=== PATIENT | female | born 1965 | race Caucasian/White ===

== ENCOUNTER 2016-09-12 07:41 | Day surgery (SDC) | payer OTHER ==
[~2016-09-12 07:41] MED LIST: PROPOFOL INJ 200 MG/20 ML VIAL IV ONE
[2016-09-12 09:40] VITALS: BP 118/72
--- NOTE | 2016-09-12 11:44 | Operative Report ---
Operative Report DATE OF SURGERY: 09/12/16 Operative Report: The risks, benefits and alternatives of the procedure including risks of bleeding, perforation requiring surgery are explained to the patient detail and informed consent is obtained. Patient is brought back to the endoscopy suite and placed in the left, lateral decubital position. A rectal examination was done which did not reveal any masses, tears or fissures. An Olympus videoscope was inserted into the patient's rectum. The scope was then gradually advanced all the way to the cecum. Cecum was identified by the usual anatomical landmarks including the ileocecal valve as well as the appendiceal office. Photodocumentation was obtained. The scope was then sequentially pulled back via the rest segments of the colon including the ascending colon, hepatic flexure, transverse colon, splenic flexure, descending colon and finally into the rectosigmoid portions of the colon. Retroflexion maneuvers performed. PREOPERATIVE DIAGNOSIS: Anemia, heme positive stool POSTOPERATIVE DIAGNOSIS: Mild right-sided mucosal inflammation in the colon status post biopsy. Internal hemorrhoids OPERATION: Colonoscopy with biopsy SURGEON: CLIFF MALCOLM ANESTHESIA: LMAC TISSUE REMOVED OR ALTERED: Specimen obtained rule out lymphocytic, microcytic, collagenous colitis COMPLICATIONS: None. ESTIMATED BLOOD LOSS: none INTRAOPERATIVE FINDINGS: As described above. PROCEDURE: Patient tolerated procedure well. No immediate postprocedure complications are noted. Patient discharged in good condition. Discharge date 09/12/2016. Discharge diet: Regular. Discharge activity: Regular. 2-3 week follow-up to discuss findings. Patient is instructed to call the office or proceed to the emergency room should there be any further problems or questions. We'll await on biopsies.
== END 2016-09-12 09:35 | disposition home or self-care (01) ==
LOC: END 07:41
PROVIDERS: ATTEND Internal Medicine Gastroenterology
PROC: 0DBF8ZX Excision of Right Large Intestine, Via Natural or Artificial Opening Endoscopic, Diagnostic (ICD-10-PCS; principal; 2016-09-12 09:00)
DX: K52.9 Noninfective gastroenteritis and colitis, unspecified (principal); D64.9 Anemia, unspecified; I10 Essential (primary) hypertension; Z86.73 Personal history of transient ischemic attack (TIA), and cerebral infarction without residual deficits; Z87.891 Personal history of nicotine dependence; Z88.6 Allergy status to analgesic agent; Z88.5 Allergy status to narcotic agent
CPT/HCPCS: 45380; 88305 ×2; J2704; 810

== ENCOUNTER 2016-09-20 18:39 | Emergency (ER) | payer OTHER ==
--- NOTE | 2016-09-20 19:32 | ER Document Report ---
HPI - HPI Patient complains to provider of: left foot injury Onset: Other Onset/Duration: Sudden Quality of pain: Throbbing Severity: Moderate Pain Level: 4 Context: Patient states she tripped injuring left toes and left foot on Monday. Associated Symptoms: None Exacerbated by: Movement, Walking Relieved by: Denies Similar symptoms previously: Yes Recently seen / treated by doctor: No - ROS ROS below otherwise negative: Yes Systems Reviewed and Negative: Yes All other systems reviewed and negative - CONSTITUTIONAL Constitutional: DENIES: Fever - EENT EENT: DENIES: Congestion - NEURO Neurology: DENIES: Headache - CARDIOVASCULAR Cardiovascular: DENIES: Chest pain - RESPIRATORY Respiratory: DENIES: Trouble Breathing - GASTROINTESTINAL Gastrointestinal: DENIES: Abdominal Pain - URINARY Urinary: DENIES: Dysuria - MUSCULOSKELETAL Musculoskeletal: REPORTS: Extremity pain, Swelling - Left toes and foot - DERM Skin Color: Ecchymosis - left Toes and foot Past Medical History - General Information source: Patient - Social History Smoking Status: Former Smoker Frequency of alcohol use: None Drug Abuse: None Lives with: Family Family History: Reviewed & Not Pertinent Patient has suicidal ideation: No Patient has homicidal ideation: No - Past Medical History Cardiac Medical History: Reports: Hx Hypercholesterolemia, Hx Hypertension Musculoskeltal Medical History: Denies Hx Arthritis Psychiatric Medical History: Reports: Hx Depression Past Surgical History: Reports: Hx Orthopedic Surgery - left hand right foot, Hx Tonsillectomy - 2011, Hx Tubal Ligation - Immunizations Hx Diphtheria, Pertussis, Tetanus Vaccination: Yes Vertical Provider Document - CONSTITUTIONAL Agree With Documented VS: Yes Exam Limitations: No Limitations General Appearance: WD/WN, No Apparent Distress - INFECTION CONTROL TRAVEL OUTSIDE OF THE [place] IN LAST 30 DAYS: No - HEENT HEENT: Atraumatic, Normocephalic - RESPIRATORY Respiratory: Breath Sounds Normal, No Respiratory Distress O2 Sat by Pulse Oximetry: 100 - CARDIOVASCULAR Cardiovascular: Regular Rate, Regular Rhythm - MUSCULOSKELETAL/EXTREMETIES Musculoskeletal/Extremeties: Edema - Left foot and toes. Neurovascular and sensation intact, Eccymosis - NEURO Level of Consciousness: Awake, Alert, Appropriate - DERM Integumentary: Warm, Dry Course - Re-evaluation Re-evalutation: 09/20/16 20:19 X-ray results reviewed with patient. Showed fracture of the left fifth toe, and sesamoid fracture of the first metatarsal. Patient nontender over first metatarsal, but posterior splint applied and patient instructed to follow with orthopedic for further evaluation. 09/20/16 20:39 - Vital Signs Vital signs: Temp Pulse Resp BP Pulse Ox 97.8 F 95 18 139/82 H 100 09/20/16 19:03 09/20/16 19:03 09/20/16 19:03 09/20/16 19:03 09/20/16 19:03 Procedures - Immobilization Left Foot Time completed: 20:39 Pre-Proc Neuro Vasc Exam: Normal Immobilizer type: Short Leg Posterior Performed by: PCT Post-Proc Neuro Vasc Exam: Normal Alignment checked and good: Yes Discharge - Discharge Clinical Impression: Contusion of left foot including toes Qualifiers: Encounter type: initial encounter Qualified Code(s): S90.32XA - Contusion of left foot, initial encounter Fracture of fifth toe, left, closed Qualifiers: Encounter type: initial encounter Qualified Code(s): S92.502A - Displaced unspecified fracture of left lesser toe(s), initial encounter for closed fracture Condition: Good Disposition: HOME, SELF-CARE Additional Instructions: Ice and elevate foot Motrin 3 times a day for pain, Vicodin as needed Follow-up with orthopedic for further evaluation of toe fracture, and first metatarsal fracture reported on x-ray. Return as needed Prescriptions: Hydrocodone/Acetaminophen [[place] 5-325 mg Tablet] 1 tab PO PRN PRN #10 tablet PRN Reason: Forms: Restricted Release Referrals: YOVANI DIAZ MD [ACTIVE STAFF] - Follow up as needed
[2016-09-20] MEDS ORDERED: HYDROCODONE/ACETAMINOPHEN 5-325 MG 6 TAB/DSPK PO PRN (20:24)
[2016-09-20 21:11] VITALS: BP 131/77
== END 2016-09-20 21:07 | disposition home or self-care (01) ==
LOC: ER 18:39
PROC: 2W3TX1Z Immobilization of Left Foot using Splint (ICD-10-PCS; principal; 2016-09-20)
DX: S90.32XA Contusion of left foot, initial encounter (principal); S92.502A Displaced unspecified fracture of left lesser toe(s), initial encounter for closed fracture; W01.0XXA Fall on same level from slipping, tripping and stumbling without subsequent striking against object, initial encounter; E78.00 Pure hypercholesterolemia, unspecified; I10 Essential (primary) hypertension; Z98.51 Tubal ligation status
CPT/HCPCS: 99283

== ENCOUNTER 2016-10-05 14:56 | Emergency (ER) | payer OTHER ==
--- NOTE | 2016-10-05 15:46 | ER Document Report ---
ED Extremity Problem, Lower - General Chief Complaint: Foot Injury Stated Complaint: LEFT FOOT PAIN Time Seen by Provider: 10/05/16 15:31 Mode of Arrival: Ambulatory Information source: Patient Notes: 50-year-old female presents to ED for pain in her left foot. He states he cannot follow-up with orthopedics as she does not have the money. TRAVEL OUTSIDE OF THE [place] IN LAST 30 DAYS: No - HPI Patient complains to provider of: Injury - 09/18/2016, Pain Location: 5th Toe Occurred: Other - 09/18/2016 Where: Outdoors Onset/Duration: Better Quality of pain: Achy Severity: Mild Pain Level: 1 Context: Other - Accidentally kicked a chair Recent injury: Yes Associated symptoms: Painful ambulation Exacerbated by: Walking Relieved by: Elevation, Ice, Rest - Related Data Allergies/Adverse Reactions: morphine Adverse Reaction (Severe, Verified 10/05/16 14:58) SEVERE N/V oxycodone [From Percocet] Adverse Reaction (Severe, Verified 10/05/16 14:58) SEVERE N/V Past Medical History - General Information source: Patient - Social History Smoking Status: Former Smoker Cigarette use (# per day): No Chew tobacco use (# tins/day): No Smoking Education Provided: No Frequency of alcohol use: Rare Drug Abuse: None Occupation: [employer] Lives with: Family Family History: Reviewed & Not Pertinent Patient has suicidal ideation: No Patient has homicidal ideation: No - Past Medical History Cardiac Medical History: Reports: Hx Hypercholesterolemia, Hx Hypertension Pulmonary Medical History: Reports: None EENT Medical History: Reports: None Neurological Medical History: Reports: None Endocrine Medical History: Reports: None Renal/ Medical History: Reports: None Malignancy Medical History: Reports: None GI Medical History: Reports: None Musculoskeltal Medical History: Reports None Skin Medical History: Reports None Psychiatric Medical History: Reports: Hx Depression Traumatic Medical History: Reports: None Infectious Medical History: Reports: None Surgical Hx: Negative Past Surgical History: Reports: Hx Orthopedic Surgery - left hand right foot, Hx Tonsillectomy - 2011, Hx Tubal Ligation - Immunizations Hx Diphtheria, Pertussis, Tetanus Vaccination: Yes Review of Systems - Review of Systems Constitutional: No symptoms reported EENT: No symptoms reported Cardiovascular: No symptoms reported Respiratory: No symptoms reported Gastrointestinal: No symptoms reported Genitourinary: No symptoms reported Female Genitourinary: No symptoms reported Musculoskeletal: Other - Foot pain Skin: No symptoms reported Hematologic/Lymphatic: No symptoms reported Neurological/Psychological: No symptoms reported -: Yes All other systems reviewed and negative Physical Exam - Vital signs Vitals: Temp Pulse Resp BP Pulse Ox 98.0 F 84 18 135/82 H 97 10/05/16 14:59 10/05/16 14:59 10/05/16 14:59 10/05/16 14:59 10/05/16 14:59 Interpretation: Normal - General General appearance: Appears well, Alert - HEENT Head: Normocephalic, Atraumatic Eyes: Normal Pupils: PERRL - Respiratory Respiratory status: No respiratory distress Chest status: Nontender Breath sounds: Normal Chest palpation: Normal - Cardiovascular Rhythm: Regular Heart sounds: Normal auscultation Murmur: No - Abdominal Inspection: Normal Distension: No distension Bowel sounds: Normal Tenderness: Nontender Organomegaly: No organomegaly - Back Back: Normal, Nontender - Extremities General upper extremity: Normal inspection, Nontender, Normal color, Normal ROM , Normal temperature General lower extremity: Normal inspection, Normal color, Normal ROM, Normal temperature, Normal weight bearing. No: Jie's sign Foot: Tender - Neurological Neuro grossly intact: Yes Cognition: Normal Orientation: AAOx4 Lefor Coma Scale Eye Opening: Spontaneous Lefor Coma Scale Verbal: Oriented Janett Coma Scale Motor: Obeys Commands Janett Coma Scale Total: 15 Speech: Normal Motor strength normal: LUE, RUE, LLE, RLE Sensory: Normal - Psychological Associated symptoms: Normal affect, Normal mood - Skin Skin Temperature: Warm Skin Moisture: Dry Skin Color: Normal Course - Re-evaluation Re-evalutation: 10/05/16 17:04 Discussed x-ray with patient and written report given to patient to follow-up with her primary doctor. Patient given a note that she can return to work. Patient states that she is able to ambulate with minimal pain. - Vital Signs Vital signs: Temp Pulse Resp BP Pulse Ox 98.0 F 84 18 135/82 H 97 10/05/16 14:59 10/05/16 14:59 10/05/16 14:59 10/05/16 14:59 10/05/16 14:59 - Diagnostic Test Radiology reviewed: Image reviewed, Reports reviewed Discharge - Discharge Clinical Impression: Fracture of toe of left foot Qualifiers: Encounter type: subsequent encounter Toe: lesser toe Fracture type: closed Phalanx: proximal Fracture alignment: nondisplaced Fracture healing: with routine healing Qualified Code(s): S92.515D - Nondisplaced fracture of proximal phalanx of left lesser toe(s), subsequent encounter for fracture with routine healing Condition: Stable Disposition: HOME, SELF-CARE Instructions: Family Physicians / Practices Additional Instructions: Fractured Toe You have fractured your toe. Although this fracture doesn't need a cast or splint, emergency evaluation was needed to assess the straightness of the bones and joints. Reduction ("setting") is necessary for toe fractures which are crooked or twisted. A toe fracture will heal in about three weeks. Usually, the fractured toe is taped to the next toe. The second toe acts as a moving splint to protect the broken one. Ice and elevation help during the first 48 hours. You may need crutches at first if walking is painful. When you begin walking, be careful NOT to do things that hurt. If weight bearing is not comfortable within a few days, you may require a special shoe, walking boot, or cast. Call the doctor or return at once if severe swelling, severe pain, or numbness develop in the toe, or if you suspect you may have re-injured it. ICE & ELEVATION: Apply ice packs frequently against the painful area. Many different schedules are recommended, such as "20 minutes on, 20 minutes off" or "one hour ice, two hours rest." If you need to work, you may need to go longer between ice treatments. You should plan to have the area ice packed AT LEAST one- fourth of the time. The ice should be applied over the wrap, tape, or splint, or over a layer of cloth -- not directly against the skin. Some ice bags have a built-in cloth and can be put directly on the skin. Your injured part should be elevated as much as possible over the next 48 hours. Try to keep the injury above the level of the heart. Avoid use of the injured area. Elevation and rest will decrease the swelling. USE OF [id number] IBUPROFEN: Ibuprofen (Advil, Nuprin, Medipren, Motrin IB) is a medication for fever and pain control. In addition, it has anti- inflammatory effects which may be beneficial, especially in the treatment of injuries. It's best to take ibuprofen with food. Persons with ulcer disease or allergy to aspirin should notify their physician of this before taking ibuprofen. Ibuprofen can be given every four to six hours, for a total of four doses daily. Age Pain or fever dose Antiinflammatory dose 6-8 yr 200 mg (1 tab) 200 mg (1 tab) 9-11 yr 200 mg (1 tab) 200-400 mg (1-2 tab) 11-14 yr 200-400 mg (1-2 tab) 400 mg (2 tab) 15-adult 400 mg (2 tab) 600 mg (3 tab) FOLLOW-UP CARE: If you have been referred to a physician for follow-up care, call the physician s office for an appointment as you were instructed or within the next two days. If you experience worsening or a significant change in your symptoms, notify the physician immediately or return to the Emergency Department at any time for re-evaluation. Forms: Return to Work, Elevated Blood Pressure
--- NOTE | 2016-10-05 16:16 | RADIOLOGY REPORT (SQ) ---
EXAM DESCRIPTION: FOOT LEFT COMPLETE COMPLETED DATE/TIME: 10/05/2016 3:51 pm REASON FOR STUDY: pain hx of fracture COMPARISON: None. NUMBER OF VIEWS: Three views. TECHNIQUE: AP, lateral and oblique radiographic images acquired of the left foot. LIMITATIONS: None. FINDINGS: MINERALIZATION: Normal. BONES: Oblique fracture in the proximal phalanx of the left 5th digit, no significant displacement. No other fracture or dislocation. No worrisome bone lesions. JOINTS: No effusions. SOFT TISSUES: Mild soft tissue swelling. No foreign body. OTHER: No other significant finding. IMPRESSION: Oblique fracture in the proximal phalanx of the left 5th digit, no significant displacem ent. TECHNICAL DOCUMENTATION: JOB ID: [id number] [employer] All Rights Reserved
[2016-10-05 17:07] VITALS: BP 125/79
== END 2016-10-05 17:07 | disposition home or self-care (01) ==
LOC: ER 14:56
DX: S92.515D Nondisplaced fracture of proximal phalanx of left lesser toe(s), subsequent encounter for fracture with routine healing (principal); M79.672 Pain in left foot; Z87.891 Personal history of nicotine dependence; X58.XXXD Exposure to other specified factors, subsequent encounter
CPT/HCPCS: 99283

== ENCOUNTER 2016-11-09 09:24 | Day surgery (SDC) | payer OTHER ==
[~2016-11-09 09:24] MED LIST changes: +DIPHENHYDRAMINE HCL 50 MG/ML VIAL ONE; +EPINEPHRINE INJ 1 MG/10 ML DISP.SYRIN ONE; +FLUMAZENIL INJ 0.5 MG/5 ML VIAL IV ONE; +GLUCAGON,HUMAN RECOMB 1 MG INJ ONE; +MIDAZOLAM 2 MG/2 ML INJ ONE; +NALOXONE HCL INJ/PF 0.4 MG/1 ML SDV ONE; +ONDANSETRON HCL INJ/PF 4 MG/2 ML SDV ONE; -PROPOFOL INJ 200 MG/20 ML VIAL IV ONE
[2016-11-09] MEDS: MIDAZOLAM 2 MG/2 ML INJ ONE ×3 (10:05→10:13)
[2016-11-09] MEDS: FENTANYL CITRATE INJ/PF 100 MCG/2 ML AMPUL ONE ×2 (10:07→10:10)
--- NOTE | 2016-11-09 10:24 | Operative Report ---
Operative Report DATE OF SURGERY: 11/09/16 Operative Report: The risks benefits and alternatives of the procedure explained to the patient in detail and informed consent is obtained. A GIF Olympus video scope was inserted into the patient's mouth and hypopharynx, the esophagus is identified intubated and insufflated ,the scope was then advanced through the esophagus stomach and duodenum, retroflexion maneuver is done, the esophagus stomach and first and second portions of the duodenum examined PREOPERATIVE DIAGNOSIS: Gastroesophageal reflux disease POSTOPERATIVE DIAGNOSIS: Emmanuel's esophagus status post ablation. Hiatal hernia. Gastritis status post biopsy rule out Helicobacter pylori OPERATION: EGD with ablation. EGD with biopsy SURGEON: CLIFF MALCOLM ANESTHESIA: Moderate Sedation - 6 mg of Versed, 100 mcg of fentanyl. Conscious sedation monitoring time 30 minutes. TISSUE REMOVED OR ALTERED: Gastric mucosal specimen obtained to rule out Helicobacter pylori. COMPLICATIONS: None. ESTIMATED BLOOD LOSS: None. INTRAOPERATIVE FINDINGS: As described above. PROCEDURE: Patient tolerated the procedure well. No immediate postprocedure complications are noted. Patient discharged in good condition. Discharge date 11/09/2016. Discharge diet: Regular. Discharge activity: Regular. 2-3 week follow-up to discuss findings. Patient is instructed to call the office or proceed to the emergency room should there be any further problems or questions.
[2016-11-09 12:16] VITALS: BP 95/56
== END 2016-11-09 11:35 | disposition home or self-care (01) ==
LOC: END 09:24
PROVIDERS: ATTEND Internal Medicine Gastroenterology
PROC: 0D558ZZ Destruction of Esophagus, Via Natural or Artificial Opening Endoscopic (ICD-10-PCS; principal; 2016-11-09 09:30)
PROC: 0DB68ZX Excision of Stomach, Via Natural or Artificial Opening Endoscopic, Diagnostic (ICD-10-PCS; 2016-11-09 09:30)
DX: K21.9 Gastro-esophageal reflux disease without esophagitis (principal); K22.70 Barrett's esophagus without dysplasia; K44.9 Diaphragmatic hernia without obstruction or gangrene; K29.70 Gastritis, unspecified, without bleeding
CPT/HCPCS: 43270; 43239; 88342 ×2; 88305 ×2; J2250; J3010; J0171; J1200; J1610; J2310; J2405; J3490

== ENCOUNTER 2017-02-06 11:49 | Emergency (ER) | payer OTHER ==
--- NOTE | 2017-02-06 12:41 | ER Document Report ---
ED GI/ - General Mode of Arrival: Ambulatory Information source: Patient TRAVEL OUTSIDE OF THE [place] IN LAST 30 DAYS: No - HPI Patient complains to provider of: Other - see narrative Associated symptoms: Other - see narrative Similar symptoms previously: Yes <TATE ROSA - Last Filed: 02/06/17 12:32> <CRUZITO DANIELLE - Last Filed: 02/06/17 15:54> - General Chief Complaint: Fever Stated Complaint: FEVER Time Seen by Provider: 02/06/17 12:21 Notes: Patient is a 51-year-old female who presents to the emergency department today with complaints of the sensation that her iron is low. Patient states she is able to sense when her iron drops. Patient states she has been tested in the past for blood in her stool which came back positive. 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 Patient states she had an appointment today with the [facility] so she called to see if she could get in earlier and they told her to come here. Patient states she vomited prior to arrival here. Patient complains of fevers, generalized body aches, chills, and associated nausea. Patient denies any chest pain, shortness of breath, diarrhea , abdominal pain, ear pain, nose congestion, or throat pain. (TATE ROSA) - Related Data Allergies/Adverse Reactions: morphine Adverse Reaction (Severe, Verified 02/06/17 11:53) SEVERE N/V oxycodone [From Percocet] Adverse Reaction (Severe, Verified 02/06/17 11:53) SEVERE N/V Past Medical History - General Information source: Patient, [facility] Records - Social History Smoking Status: Former Smoker Cigarette use (# per day): No Chew tobacco use (# tins/day): No Frequency of alcohol use: None Drug Abuse: None Lives with: Family Family History: Reviewed & Not Pertinent - Past Medical History Cardiac Medical History: Reports: Hx Hypercholesterolemia, Hx Hypertension Psychiatric Medical History: Reports: Hx Depression Past Surgical History: Reports: Hx Orthopedic Surgery - left hand right foot, Hx Tonsillectomy - 2012, Hx Tubal Ligation. Denies: Hx Hysterectomy - Immunizations Hx Diphtheria, Pertussis, Tetanus Vaccination: Yes <TATE ROSA - Last Filed: 02/06/17 12:32> Review of Systems - Review of Systems Constitutional: See HPI, Chills, Fever, Other - sensation that her iron is low EENT: denies: Ear pain, Nose congestion, Throat pain Cardiovascular: denies: Chest pain Respiratory: denies: Short of breath Gastrointestinal: See HPI, Nausea, Vomiting. denies: Abdominal pain, Diarrhea Genitourinary: No symptoms reported Female Genitourinary: No symptoms reported Musculoskeletal: See HPI, Joint pain - generalized body aches Skin: No symptoms reported Hematologic/Lymphatic: No symptoms reported Neurological/Psychological: No symptoms reported -: Yes All other systems reviewed and negative <TATE ROSA - Last Filed: 02/06/17 12:32> Physical Exam <TATE ROSA - Last Filed: 02/06/17 12:32> <CRUZITO DANIELLE - Last Filed: 02/06/17 15:54> - Vital signs Vitals: Temp Pulse Resp BP Pulse Ox 101.5 F H 116 H 24 H 158/89 H 100 02/06/17 11:53 02/06/17 11:53 02/06/17 11:53 02/06/17 11:53 02/06/17 11:53 - Notes Notes: PHYSICAL EXAM GENERAL: Alert, interacts well. No acute distress. HEAD: Normocephalic, atraumatic. EYES: Pupils equal, round, and reactive to light. Extraocular movements intact. ENT: Oral mucosa moist, tongue midline. NECK: Full range of motion. Supple. Trachea midline. LUNGS: Clear to auscultation bilaterally, no wheezes, rales, or rhonchi. No respiratory distress. HEART: Mildly tachycardic, regular rhythm, 2/6 systolic ejection murmur. No murmurs gallops or rubs. ABDOMEN: Obese, soft, non-tender. Non-distended. Bowel sounds present in all 4 quadrants. EXTREMITIES: Moves all 4 extremities spontaneously. No cyanosis. NEUROLOGICAL: Alert and oriented x3. Normal speech. PSYCH: Normal affect, normal mood. SKIN: Warm, dry, normal turgor. No rashes or lesions noted. (TATE ROSA) Course <TATE ROSA - Last Filed: 02/06/17 12:32> - Laboratory Result Diagrams: 02/06/17 12:57 02/06/17 12:57 <CRUZITO DANIELLE - Last Filed: 02/06/17 15:54> - Re-evaluation Re-evalutation: 02/06/17 14:30 CBC shows leukocytosis with white count of 13.9, CMP unremarkable, urinalysis unremarkable, rapid flu is negative. 02/06/17 14:30 At present patient's symptoms are very nonspecific, the fatigue and chills are explained by the fever however I do not have an exact etiology for her fever at this time. I do not see a source of infection at this time. Abdomen is benign. No other source of infection is seen. At this time patient will be discharged home with Zofran and instructions to drink plenty of fluid, return to the emergency department for any new or concerning symptoms. (CRUZITO DANIELLE) - Vital Signs Vital signs: Temp Pulse Resp BP Pulse Ox 101.5 F H 116 H 24 H 158/89 H 100 02/06/17 11:53 02/06/17 11:53 02/06/17 11:53 02/06/17 11:53 02/06/17 11:53 - Laboratory Laboratory results interpreted by me: 02/06/17 12:57 WBC 13.9 H MCH 26.0 L RDW 15.9 H Seg Neutrophils % 87.4 H Lymphocytes % 6.7 L Absolute Neutrophils 12.1 H Discharge <TATE ROSA - Last Filed: 02/06/17 12:32> <CRUZITO DANIELLE - Last Filed: 02/06/17 15:54> - Discharge Clinical Impression: Fever Qualifiers: Fever type: unspecified Qualified Code(s): R50.9 - Fever, unspecified Nausea and vomiting Qualifiers: Vomiting type: unspecified Vomiting Intractability: non-intractable Qualified Code(s): R11.2 - Nausea with vomiting, unspecified Hypertension Qualifiers: Hypertension type: essential hypertension Qualified Code(s): I10 - Essential ( primary) hypertension Condition: Stable Disposition: HOME, SELF-CARE Additional Instructions: Vomiting Vomiting (or nausea without vomiting) can be caused by many other different problems. It can mean that something's wrong with the stomach, such as ulcers or inflammation or the intestinal tract, such as appendicitis. But it can also be a symptom of a problem that has nothing to do with the stomach or intestines. Vomiting is common with severe headaches, earaches, tonsillitis, and kidney infections, etc. We see it with pneumonia or heart attacks. Drugs can cause nausea and vomiting. Many abdominal problems cause vomiting; for example, gallstones, kidney stones, pancreatitis, and intestinal obstruction ( blocked bowels). In most cases, curing the vomiting depends on fixing the problem that caused it. For temporary relief, we may use an anti-nausea medicine. For home use, we can prescribe suppositories, chewable pills, pills that dissolve in the mouth, or liquid anti-nausea drugs. If the vomiting seems to be caused by a problem in the stomach, acid-suppressing drugs may be prescribed as well. It's important to avoid dehydration. Sip small amounts of clear liquids ( soft drinks, tea, broth, etc) . Try to take fluids frequently even if you are vomiting to prevent dehydration. Take increasing amounts of fluid and when liquids are being consumed successfully, advance to small amounts of bland food (toast, soups, mashed potatoes, etc.) until you are able to resume a regular diet. Avoid aspirin, tobacco, and alcohol. If the vomiting worsens, if the problem that's making you vomit worsens, or if there's evidence of bleeding in the stomach (such as black, tarry stool, or bloody or black vomit), you should return immediately. Also, return if abdominal pain worsens or becomes localized to one area or you develop high fever. Call your doctor if you aren't improved in 24 hours. You do not have the flu, you are not dehydrated, your liver and kidneys are normal, you do not have a urine infection. Prescriptions: Ondansetron [Zofran Odt 4 mg Tablet] 1 - 2 tab PO Q4H PRN #15 tab.rapdis PRN Reason: For Nausea/Vomiting Forms: Elevated Blood Pressure Referrals: [facility] [Primary Care Provider] - Follow up as needed Ever Attestation: 02/06/17 15:54 I personally performed the services described in the documentation, reviewed and edited the documentation which was dictated to the scribe in my presence, and it accurately records my words and actions. (CRUZITO DANIELLE) Scribe Documentation - Scribe Written by Ever:: Ever Sotomayor, 02/06/2017 1242 acting as scribe for :: Chayo <TATE ROSA - Last Filed: 02/06/17 12:32>
[2017-02-06] MEDS ORDERED: NORMAL SALINE 1000 ML 1,000 ML IV ONE (12:43)
[2017-02-06] MEDS ORDERED: ONDANSETRON HCL INJ/PF 4 MG/2 ML SDV IV ONE (12:43)
[2017-02-06 13:11] LABS: ABSOLUTE BASOPHILS # (AUTO) 0.1 10^3/uL (0.0-0.2); ABSOLUTE EOSINOPHILS # (AUTO) 0.1 10^3/uL (0.0-0.6); ABSOLUTE LYMPHOCYTES (AUTO) 0.9 10^3/uL (0.5-4.7); ABSOLUTE MONOCYTES (AUTO) 0.7 10^3/uL (0.1-1.4); ABSOLUTE NEUT (AUTO) 12.1 10^3/uL (1.7-8.2); BASOPHILS % (AUTO) 0.4 % (0-2); EOSINOPHILS % (AUTO) 0.8 % (0-6); HEMATOCRIT 36.7 % (36.0-47.0); HGB HCT DIFFERENCE -0.7; LYMPHOCYTES % (AUTO) 6.7 % (13-45); MEAN CORPUSCULAR HGB CONC 32.6 g/dL (32.0-36.0); MEAN CORPUSCULAR VOLUME 80 fl (80-97); MONOCYTES % (AUTO) 4.7 % (3-13); RED BLOOD COUNT 4.61 10^6/uL (3.72-5.28); RED CELL DISTRIBUTION WIDTH 15.9 % (11.5-14.0); SEGMENTED NEUTROPHILS % (AUTO) 87.4 % (42-78); WHITE BLOOD COUNT 13.9 10^3/uL (4.0-10.5)
[2017-02-06 13:28] LABS: ALANINE AMINOTRANSFERASE 24 U/L (9-52); ALBUMIN 4.1 g/dL (3.5-5.0); ALKALINE PHOSPHATASE 80 U/L (38-126); ANION GAP 12 (5-19); ASPARTATE AMINO TRANSFERASE 22 U/L (14-36); BILIRUBIN,DIRECT 0.4 mg/dL (0.0-0.4); BILIRUBIN,TOTAL 0.5 mg/dL (0.2-1.3); BLOOD UREA NITROGEN 13 mg/dL (7-20); CALCIUM 9.6 mg/dL (8.4-10.2); CARBON DIOXIDE 28 mmol/L (22-30); CHLORIDE 102 mmol/L (98-107); CREATININE RESULT 0.87 mg/dL (0.52-1.25); GLUCOSE 101 mg/dL (75-110); POTASSIUM 4.6 mmol/L (3.6-5.0); SODIUM 142.1 mmol/L (137-145); TOTAL PROTEIN 7.2 g/dL (6.3-8.2)
[2017-02-06 14:01] LABS: APPEARANCE,URINE CLEAR; BILIRUBIN,URINE NEGATIVE (NEGATIVE); GLUCOSE, URINE NEGATIVE (NEGATIVE); KETONES,URINE NEGATIVE (NEGATIVE); LEUKOCYTE ESTERASE,URINE NEGATIVE (NEGATIVE); NITRITE,URINE NEGATIVE (NEGATIVE); PROTEIN,URINE NEGATIVE (NEGATIVE); URINE SPECIFIC GRAVITY 1.011; UROBILINOGEN,URINE NEGATIVE mg/dL (<2.0)
[2017-02-06] MEDS ORDERED: ONDANSETRON 4 MG TAB.RAPDIS PO ONE (14:35)
[2017-02-06 16:32] VITALS: BP 122/69
== END 2017-02-06 16:33 | disposition home or self-care (01) ==
LOC: ER 11:49
DX: R50.9 Fever, unspecified (principal); R11.2 Nausea with vomiting, unspecified; I10 Essential (primary) hypertension; E78.00 Pure hypercholesterolemia, unspecified; Z88.6 Allergy status to analgesic agent; Z98.51 Tubal ligation status; Z87.891 Personal history of nicotine dependence
CPT/HCPCS: 99283; 96374; 36415; 85025; 80053; 81001; 87804; S0119; J2405; J7030

== ENCOUNTER → 2017-04-14 | Outpatient (CLI) | payer OTHER ==
[2017-04-14 14:27] LABS: ABSOLUTE BASOPHILS # (AUTO) 0.1 10^3/uL (0.0-0.2); ABSOLUTE EOSINOPHILS # (AUTO) 0.3 10^3/uL (0.0-0.6); ABSOLUTE LYMPHOCYTES (AUTO) 2.4 10^3/uL (0.5-4.7); ABSOLUTE MONOCYTES (AUTO) 0.7 10^3/uL (0.1-1.4); ABSOLUTE NEUT (AUTO) 5.5 10^3/uL (1.7-8.2); BASOPHILS % (AUTO) 1.1 % (0-2); EOSINOPHILS % (AUTO) 2.8 % (0-6); HEMATOCRIT 38.4 % (36.0-47.0); HEMOGLOBIN 12.7 g/dL (12.0-15.5); HGB HCT DIFFERENCE -0.3; LYMPHOCYTES % (AUTO) 26.8 % (13-45); MEAN CORPUSCULAR HEMOGLOBIN 25.9 pg (27.0-33.4); MEAN CORPUSCULAR HGB CONC 33.1 g/dL (32.0-36.0); MEAN CORPUSCULAR VOLUME 78 fl (80-97); MONOCYTES % (AUTO) 7.3 % (3-13); RED CELL DISTRIBUTION WIDTH 15.9 % (11.5-14.0); WHITE BLOOD COUNT 8.9 10^3/uL (4.0-10.5)
== END ==
LOC: CCC 13:57
DX: D50.9 Iron deficiency anemia, unspecified (principal)
CPT/HCPCS: 36415; 83540; 85025

== ENCOUNTER 2017-06-19 10:49 | Day surgery (SDC) | payer OTHER ==
[~2017-06-19 10:49] MED LIST changes: -DIPHENHYDRAMINE HCL 50 MG/ML VIAL ONE; -EPINEPHRINE INJ 1 MG/10 ML DISP.SYRIN ONE; -FLUMAZENIL INJ 0.5 MG/5 ML VIAL IV ONE; -GLUCAGON,HUMAN RECOMB 1 MG INJ ONE; -MIDAZOLAM 2 MG/2 ML INJ ONE; -NALOXONE HCL INJ/PF 0.4 MG/1 ML SDV ONE; -ONDANSETRON HCL INJ/PF 4 MG/2 ML SDV ONE; +PROPOFOL INJ 200 MG/20 ML VIAL IV ONE
--- NOTE | 2017-06-19 12:03 | Operative Report ---
Operative Report DATE OF SURGERY: 06/19/17 Operative Report: The risks benefits and alternatives of the procedure explained to the patient in detail and informed consent is obtained.A GIF Olympus video scope was inserted into the patient's mouth and hypopharynx, the esophagus is identified intubated and insufflated, the scope was then advanced through the esophagus stomach and duodenum, retroflexion maneuver is done, the esophagus stomach and first and second portions of the duodenum examined PREOPERATIVE DIAGNOSIS: Emmanuel's esophagus POSTOPERATIVE DIAGNOSIS: Emmanuel's esophagus status post ablation OPERATION: EGD with ablation SURGEON: CLIFF MALCOLM ANESTHESIA: LMAC TISSUE REMOVED OR ALTERED: None. COMPLICATIONS: None. ESTIMATED BLOOD LOSS: None. INTRAOPERATIVE FINDINGS: As noted above. Hiatal hernia. Resolving gastritis PROCEDURE: Patient tolerated procedure well. No immediate postprocedure complications are noted. Patient discharged in good condition. Discharge date 06/19/2017. Discharge diet: Regular. Discharge activity: Regular. 2-3 week follow-up to discuss findings. Patient is instructed to call the office or proceed to the emergency room should there be any further problems or questions.
[2017-06-19 12:30] VITALS: BP 147/65
== END 2017-06-19 12:25 | disposition home or self-care (01) ==
LOC: END 10:49
PROVIDERS: ATTEND Internal Medicine Gastroenterology
PROC: 0D558ZZ Destruction of Esophagus, Via Natural or Artificial Opening Endoscopic (ICD-10-PCS; principal; 2017-06-19 14:30)
DX: K22.719 Barrett's esophagus with dysplasia, unspecified (principal); K21.9 Gastro-esophageal reflux disease without esophagitis; K44.9 Diaphragmatic hernia without obstruction or gangrene; K29.70 Gastritis, unspecified, without bleeding; I10 Essential (primary) hypertension; E66.9 Obesity, unspecified; Z86.73 Personal history of transient ischemic attack (TIA), and cerebral infarction without residual deficits; Z88.5 Allergy status to narcotic agent; Z87.891 Personal history of nicotine dependence; Z68.41 Body mass index [BMI] 40.0-44.9, adult
CPT/HCPCS: 43270; J2704; 731

== ENCOUNTER 2017-07-05 18:35 | Emergency (ER) | payer OTHER ==
--- NOTE | 2017-07-05 20:33 | ER Document Report ---
HPI - HPI Patient complains to provider of: ear pain Pain Level: 2 Context: 51 yo female c/o pressure in both ears for over 1 month. no fever. no headache + popping and itching in ears. Taking sudafed without relief. reports similar ear discomfort in past Associated Symptoms: None Exacerbated by: Denies Relieved by: Denies Similar symptoms previously: Yes Recently seen / treated by doctor: No - EENT EENT: REPORTS: Ear Pain - [id number]. DENIES: Sore Throat - NEURO Neurology: DENIES: Headache, Weakness, Vision blurred, Dizzinesss / Vertigo - CARDIOVASCULAR Cardiovascular: DENIES: Chest pain - RESPIRATORY Respiratory: DENIES: Trouble Breathing, Coughing - GASTROINTESTINAL Gastrointestinal: DENIES: Abdominal Pain, Black / Bloody Stools - URINARY Urinary: DENIES: Dysuria, Urgency, Frequency - MUSCULOSKELETAL Musculoskeletal: DENIES: Extremity pain Past Medical History - General Information source: Patient - Social History Smoking Status: Never Smoker Lives with: Family Family History: Reviewed & Not Pertinent Patient has suicidal ideation: No Patient has homicidal ideation: No - Past Medical History Cardiac Medical History: Reports: Hx Hypercholesterolemia, Hx Hypertension Denies: Hx Coronary Artery Disease, Hx Heart Attack Pulmonary Medical History: Denies: Hx Asthma, Hx Bronchitis, Hx COPD, Hx Pneumonia Neurological Medical History: Denies: Hx Cerebrovascular Accident, Hx Seizures Renal/ Medical History: Denies: Hx Peritoneal Dialysis Musculoskeltal Medical History: Denies Hx Arthritis Psychiatric Medical History: Reports: Hx Depression Past Surgical History: Reports: Hx Orthopedic Surgery - left hand right foot, Hx Tonsillectomy - 2011, Hx Tubal Ligation. Denies: Hx Hysterectomy - Immunizations Hx Diphtheria, Pertussis, Tetanus Vaccination: Yes Vertical Provider Document - CONSTITUTIONAL Agree With Documented VS: Yes Exam Limitations: Physical Impairment - INFECTION CONTROL TRAVEL OUTSIDE OF THE [place] IN LAST 30 DAYS: No - HEENT HEENT: Atraumatic, PERRLA Notes: + bilat effusions. no pre/post auricular tenderness. no mastoid tenderness - NECK Neck: Normal Inspection, Supple - RESPIRATORY Respiratory: Breath Sounds Normal, No Respiratory Distress O2 Sat by Pulse Oximetry: 97 - DERM Integumentary: Warm, Dry Course - Vital Signs Vital signs: Temp Pulse Resp BP Pulse Ox 98.8 F 73 20 136/86 H 97 07/05/17 19:09 07/05/17 19:09 07/05/17 19:09 07/05/17 19:09 07/05/17 19:09 Discharge - Discharge Clinical Impression: Acute serous otitis media, bilateral Qualifiers: Recurrence: not specified as recurrent Qualified Code(s): H65.03 - Acute serous otitis media, bilateral Condition: Stable Disposition: HOME, SELF-CARE Instructions: Serous Otitis Media ([facility]) Additional Instructions: Recommend over the counter antihistamine/decongestant to dry fluid in the inner ear - Kat Correiayrmarvin Hernández oral steroid as prescribed push fluids follow up with primary care if symptoms persist Prescriptions: Prednisone [Deltasone 10 mg Tablet] 10 mg PO ASDIR PRN #21 tablet PRN Reason:
[2017-07-05 20:49] VITALS: BP 128/88
== END 2017-07-05 20:47 | disposition home or self-care (01) ==
LOC: ER 18:35
DX: H65.03 Acute serous otitis media, bilateral (principal); I10 Essential (primary) hypertension
CPT/HCPCS: 99282

== ENCOUNTER 2017-07-17 18:57 | Emergency (ER) | payer OTHER ==
[2017-07-17 19:06] VITALS: BP 139/84
--- NOTE | 2017-07-17 20:01 | ER Document Report ---
ED ENT - General Chief Complaint: Ear Pain Stated Complaint: EAR PAIN, SORE THROAT Time Seen by Provider: 07/17/17 19:43 Mode of Arrival: Ambulatory Information source: Patient Notes: 51-year-old female presented ED for complaint of right ear pain today. She states that times her left ear hurts also. She also has runny nose congestion sore throat. States she was seen recently for the same thing was started on some steroids the symptoms all went away and have come back. TRAVEL OUTSIDE OF THE [place] IN LAST 30 DAYS: No - HPI Patient complains to provider of: Ear problem, Nose problem, Throat problem Onset: Other - Several days Onset/Duration: Gradual Quality of pain: Sharp Severity: Moderate Pain Level: 3 Context: Recent Illness Location of pain: Ears, Nose, Throat Associated symptoms: Ear pain, Runny nose, Sinus pain, Sinus drainage, Sore throat Similar symptoms previously: Yes Recently seen / treated by doctor: Yes - Related Data Allergies/Adverse Reactions: morphine Adverse Reaction (Severe, Verified 07/17/17 18:58) SEVERE N/V oxycodone [From Percocet] Adverse Reaction (Severe, Verified 07/17/17 18:58) SEVERE N/V Past Medical History - General Information source: Patient - Social History Smoking Status: Former Smoker Cigarette use (# per day): No Chew tobacco use (# tins/day): No Smoking Education Provided: No Frequency of alcohol use: None Drug Abuse: None Lives with: Family Family History: CAD, CVA, DM, Hyperlipidemia, Hypertension, Thyroid Disfunction. denies: COPD, Malignancy Patient has suicidal ideation: No Patient has homicidal ideation: No - Past Medical History Cardiac Medical History: Reports: Hx Hypercholesterolemia, Hx Hypertension Pulmonary Medical History: Reports: None EENT Medical History: Reports: None Neurological Medical History: Reports: Hx Cerebrovascular Accident - TIA Endocrine Medical History: Reports: None Renal/ Medical History: Reports: None Malignancy Medical History: Reports: None GI Medical History: Reports: None Musculoskeltal Medical History: Reports Hx Arthritis, Reports Hx Musculoskeletal Deformity - Carpal tunnel and ganglion cyst, Reports Hx Musculoskeletal Trauma - Torn tendon in the foot Skin Medical History: Reports None Psychiatric Medical History: Reports: Hx Depression Traumatic Medical History: Reports: None Infectious Medical History: Reports: None Past Surgical History: Reports: Hx Orthopedic Surgery - left hand right foot, Hx Tonsillectomy - 2011, Hx Tubal Ligation - Immunizations Hx Diphtheria, Pertussis, Tetanus Vaccination: Yes Review of Systems - Review of Systems Notes: Constitutional: [PRESENT: as per HPI. ABSENT: chills, fever(s), headache(s), weight gain, weight loss] Eyes: [ABSENT: visual disturbances] Ears: [ABSENT: hearing changes] complains of pain in right ear Nasopharyngeal: Runny nose sore throat congestion Cardiovascular: [ABSENT: chest pain, dyspnea on exertion, edema, orthropnea, palpitations] Respiratory: [ABSENT: cough, hemoptysis] Gastrointestinal: [ABSENT: abdominal pain, constipation, diarrhea, hematemesis, hematochezia, nausea, vomiting] Genitourinary: [ABSENT: dysuria, hematuria] Musculoskeletal: [ABSENT: joint swelling] Integumentary: [ABSENT: rash, wounds] Neurological: [ABSENT: abnormal gait, abnormal speech, confusion, dizziness, focal weakness, syncope] Psychiatric: [ABSENT: anxiety, depression, homicidal ideation, suicidal ideation ] Endocrine: [ABSENT: cold intolerance, heat intolerance, menstrual abnormalities , polydipsia, polyuria] Hematologic/Lymphatic: [ABSENT: easy bleeding, easy bruising, lymphadenopathy] Physical Exam - Vital signs Vitals: Temp Pulse Resp BP Pulse Ox 98.7 F 77 18 139/84 H 99 07/17/17 19:04 07/17/17 19:04 07/17/17 19:04 07/17/17 19:04 07/17/17 19:04 - Notes Notes: PHYSICAL EXAMINATION: GENERAL: Well-appearing, well-nourished and in no acute distress. HEAD: Atraumatic, normocephalic. EYES: Pupils equal round and reactive to light, extraocular movements intact, conjunctiva are normal. ENT: Erythematous swollen nasal turbinates, oropharynx erythematous with postnasal drip clear without exudates. Moist mucous membranes. Tympanic membranes pearly merida with no loss of bony landmarks NECK: Normal range of motion, supple without lymphadenopathy LUNGS: Breath sounds clear to auscultation bilaterally and equal. No wheezes rales or rhonchi. HEART: Regular rate and rhythm without murmurs ABDOMEN: Soft, nontender, nondistended abdomen. No guarding, no rebound. No masses appreciated. Female : deferred Musculoskeletal: Normal range of motion, no pitting or edema. No cyanosis. NEUROLOGICAL: Cranial nerves grossly intact. Normal speech, normal gait. Normal sensory, motor exams PSYCH: Normal mood, normal affect. SKIN: Warm, Dry, normal turgor, no rashes or lesions noted. Course - Re-evaluation Re-evalutation: 07/17/17 20:09 Assessment consistent with an upper respiratory infection with a viral sore throat. There is no signs or symptoms of any infection in either ear. Patient was encouraged to use Tylenol for her discomfort. She is also encouraged to use Flonase continue to use her Claritin for her upper respiratory symptoms. - Vital Signs Vital signs: Temp Pulse Resp BP Pulse Ox 98.7 F 77 18 139/84 H 99 07/17/17 19:04 07/17/17 19:04 07/17/17 19:04 07/17/17 19:04 07/17/17 19:04 Discharge - Discharge Clinical Impression: Viral sore throat, Otalgia of right ear URI (upper respiratory infection) Qualifiers: URI type: unspecified URI Qualified Code(s): J06.9 - Acute upper respiratory infection, unspecified HTN (hypertension) Qualifiers: Hypertension type: unspecified Qualified Code(s): I10 - Essential (primary) hypertension Condition: Stable Disposition: HOME, SELF-CARE Instructions: Family Physicians / Practices Additional Instructions: SORE THROAT: Sore throats may be caused by viruses, bacteria, or fungi. Most are due to a virus, and must get better on their own. Bacterial sore throats, particularly those due to "strep," need treatment with antibiotics. If an antibiotic is prescribed, be sure to take the medication for a full 10 days. Failure to take the antibiotic can result in complications such as rheumatic fever. Sometimes, an injection of antibiotics is given instead of pills or liquid. This single "shot" is equal in effectiveness to the oral medication. To relieve symptoms, take acetaminophen for pain. Sip clear liquids frequently, or eat popsicles or ice chips. Anesthetic sprays or lozenges may help. Make sure the air in the room is not too dry. Avoid using decongestants or antihistamines. Call the doctor if there is no improvement in two days, or if you have difficulty breathing, increasing throat pain, high fever, rash, or frequent vomiting. UPPER RESPIRATORY ILLNESS: You have a viral infection of the respiratory passages -- a "cold." This common infection causes nasal congestion, drainage, and often sore throat and cough. It is highly contagious. The disease usually lasts about 10 to 14 days. There is no "cure" for the viral infection -- it must run its course. If there is a complication, such as bacterial infection in the nose, sinuses, middle ear, or bronchial tubes, antibiotics may be required. The antibiotics won't affect the virus. Drink plenty of fluids. A humidifier may help. An expectorant medication or decongestant may make you more comfortable. Use acetaminophen or ibuprofen for fever or aches. See the doctor if fever persists over two days, if there is any significant worsening of your symptoms, or if you simply fail to improve as expected. COUGH-SUPPRESSANT & EXPECTORANT MEDICATION: You are to use a cough medication as needed for relief of symptoms. This medicine is a combination of an expectorant (to make the mucous thinner and more easily "coughed up") and a cough suppressant (to reduce the frequency of coughing). The cough-suppressant medicine is related to narcotics. You may experience mild nausea and sleepiness. Some patients who are very sensitive to narcotics may have stomach pain from this medicine. Taking the medicine with food reduces these side effects. Do not drive or work with machinery until you know how this medicine affects you. The expectorant should have no side effects. Iodine-containing expectorants (such as organidin) should not be taken by persons with active thyroid disease unless approved by your doctor. Call the doctor if you develop shortness of breath, hives, rash, itching, lightheadedness, or severe nausea and vomiting. USE OF ACETAMINOPHEN (Tylenol): Acetaminophen may be taken for pain relief or fever control. It's much safer than aspirin, offering a wider range of "safe" dosages. It is safe during . Some brand names are Tylenol, Panadol, Datril, Anacin 3, Tempra, and Liquiprin. Acetaminophen can be repeated every four hours. The following are maximum recommended dosages: >89 pounds or adults 650 mg to 900 mg Acetaminophen can be repeated every four hours. Maximum dose not to exceed 4000 mg a day. FOLLOW-UP CARE: If you have been referred to a physician for follow-up care, call the physician s office for an appointment as you were instructed or within the next two days. If you experience worsening or a significant change in your symptoms, notify the physician immediately or return to the Emergency Department at any time for re-evaluation. Forms: Elevated Blood Pressure
== END 2017-07-17 20:10 | disposition home or self-care (01) ==
LOC: ER 18:57
DX: J02.9 Acute pharyngitis, unspecified (principal); J06.9 Acute upper respiratory infection, unspecified; H92.01 Otalgia, right ear; I10 Essential (primary) hypertension; E78.00 Pure hypercholesterolemia, unspecified; Z87.891 Personal history of nicotine dependence; Z86.73 Personal history of transient ischemic attack (TIA), and cerebral infarction without residual deficits; Z88.6 Allergy status to analgesic agent
CPT/HCPCS: 99282

== ENCOUNTER 2017-10-24 21:30 | Emergency (ER) | payer SELFPAY ==
[2017-10-24 22:14] VITALS: BP 118/70
--- NOTE | 2017-10-24 23:09 | ER Document Report ---
HPI - HPI Pain Level: 3 Context: Patient is a 51-year-old female comes emergency department for chief complaint of pain to her right wrist, symptoms have been worsening over the past week and now her wrist is throbbing. She denies any specific injury, she is a center aisle cashier, she is left-handed, she states that tonight her wrist would not stop throbbing so she came to be evaluated. She did try to take ibuprofen. She denies fever, swelling, upper extremity surgery. Past Medical History - General Information source: Patient - Social History Smoking Status: Never Smoker Frequency of alcohol use: None Drug Abuse: None Lives with: Family Family History: CAD, CVA, DM, Hyperlipidemia, Hypertension, Thyroid Disfunction. denies: COPD, Malignancy - Past Medical History Cardiac Medical History: Reports: Hx Hypercholesterolemia, Hx Hypertension Denies: Hx Coronary Artery Disease, Hx Heart Attack Pulmonary Medical History: Denies: Hx Asthma, Hx Bronchitis, Hx COPD, Hx Pneumonia Neurological Medical History: Reports: Hx Cerebrovascular Accident - TIA. Denies: Hx Seizures Renal/ Medical History: Denies: Hx Peritoneal Dialysis Musculoskeltal Medical History: Reports Hx Arthritis, Reports Hx Musculoskeletal Deformity - Carpal tunnel and ganglion cyst, Reports Hx Musculoskeletal Trauma - Torn tendon in the foot Psychiatric Medical History: Reports: Hx Depression Past Surgical History: Reports: Hx Orthopedic Surgery - left hand right foot, Hx Tonsillectomy - 2011, Hx Tubal Ligation. Denies: Hx Hysterectomy - Immunizations Hx Diphtheria, Pertussis, Tetanus Vaccination: Yes Vertical Provider Document - CONSTITUTIONAL General Appearance: WD/WN, No Apparent Distress - INFECTION CONTROL TRAVEL OUTSIDE OF THE [place] IN LAST 30 DAYS: No - HEENT HEENT: Atraumatic, Normal ENT Exam, Normocephalic - NECK Neck: Normal Inspection - RESPIRATORY Respiratory: Breath Sounds Normal, No Respiratory Distress - CARDIOVASCULAR Cardiovascular: Regular Rate, Regular Rhythm - GI/ABDOMEN Gastrointestinal: Abdomen Soft, Abdomen Non-Tender - BACK Back: Normal Inspection - MUSCULOSKELETAL/EXTREMETIES Musculoskeletal/Extremeties: MAEW, FROM, Tender - Tender with palpation over the dorsal aspect of the right wrist and also the distal forearm. Normal range of motion although with mild discomfort when performing this with the wrist. No snuffbox tenderness. No swelling, erythema, abnormal heat, or significant pain. Normal window tinter, normal distal neurovascular exam, normal elbow, shoulder, upper extremity exam otherwise - NEURO Level of Consciousness: Awake, Alert, Appropriate - DERM Integumentary: Warm, Dry, No Rash Course - Re-evaluation Re-evalutation: Patient has a history of Emmanuel's esophagus and is on omeprazole and Zantac, limited in her ability to take anti-inflammatory medications by mouth. Giving topical Lidoderm. Giving premade splint for support, discussed recommendations , x-ray, follow-up, return precautions, patient states understanding and agreement. - Vital Signs Vital signs: Temp Pulse Resp BP Pulse Ox 99.0 F 72 18 118/70 96 10/24/17 22:11 10/24/17 22:11 10/24/17 22:11 10/24/17 22:11 10/24/17 22:11 - Diagnostic Test Radiology reviewed: Image reviewed, Reports reviewed Procedures - Immobilization Right wrist Pre-Proc Neuro Vasc Exam: Normal Immobilizer type: Cock-up Performed by: ANTONIO Post-Proc Neuro Vasc Exam: Normal Alignment checked and good: Yes Discharge - Discharge Clinical Impression: Right wrist pain Disposition: HOME, SELF-CARE Additional Instructions: Your x-ray is normal. Examination is consistent with tendinitis, recommendation is to apply the patch for pain, wear the supportive brace, you can also apply ice to the area 3-4 times a day for 10-15 minutes, attempt to rest the wrist. If symptoms should resolve with time. Follow-up with primary care for additional management. Return for any concerning symptoms including swelling, redness, fever, etc. Prescriptions: Lidocaine [Lidoderm 5% (700 mg) Transdermal Patch] 1 patch TP DAILY #30 adh..patch Forms: Return to Work
--- NOTE | 2017-10-24 23:32 | RADIOLOGY REPORT (SQ) ---
EXAM DESCRIPTION: XR WRIST 3 OR MORE VIEWS BILATERAL COMPLETED DATE/TME: 10/24/2017 23:07 CLINICAL HISTORY: 51 years, Female, ?injury, pain COMPARISON: None. FINDINGS: 3 views of the right wrist. No acute fracture or dislocation. Normal osseous mineralization. Radius, capitate, and lunate have appropriate alignment. IMPRESSION: No acute fracture or dislocation. 2011 [employer]- All Rights Reserved
[2017-10-24] MEDS ORDERED: LIDOCAINE 5% (700 MG) TRANSDERMAL ADH..PATCH TP ONE (23:43)
== END 2017-10-25 00:17 | disposition home or self-care (01) ==
LOC: ER 21:30
DX: M25.531 Pain in right wrist (principal); E78.00 Pure hypercholesterolemia, unspecified; I10 Essential (primary) hypertension; Z98.51 Tubal ligation status
CPT/HCPCS: 99283; 73110; L3908

== ENCOUNTER → 2018-08-06 | Outpatient (CLI) | payer OTHER ==
[2018-08-06 10:53] LABS: ABSOLUTE BASOPHILS # (AUTO) 0.1 10^3/uL (0.0-0.2); ABSOLUTE EOSINOPHILS # (AUTO) 0.2 10^3/uL (0.0-0.6); ABSOLUTE MONOCYTES (AUTO) 0.4 10^3/uL (0.1-1.4); ABSOLUTE NEUT (AUTO) 4.2 10^3/uL (1.7-8.2); HEMATOCRIT 38.4 % (36.0-47.0); HEMOGLOBIN 12.6 g/dL (12.0-15.5); LYMPHOCYTES % (AUTO) 29.5 % (13-45); MEAN CORPUSCULAR HEMOGLOBIN 25.8 pg (27.0-33.4); MEAN CORPUSCULAR HGB CONC 32.8 g/dL (32.0-36.0); MEAN CORPUSCULAR VOLUME 79 fl (80-97); PLATELET COUNT 364 10^3/uL (150-450); RED BLOOD COUNT 4.88 10^6/uL (3.72-5.28); RED CELL DISTRIBUTION WIDTH 15.9 % (11.5-14.0); SEGMENTED NEUTROPHILS % (AUTO) 60.5 % (42-78); TOTAL CELLS COUNTED % (AUTO) 100 %; WHITE BLOOD COUNT 6.9 10^3/uL (4.0-10.5)
[2018-08-06 11:16] LABS: ALANINE AMINOTRANSFERASE 27 U/L (9-52); ALKALINE PHOSPHATASE 77 U/L (38-126); ANION GAP 9 (5-19); ASPARTATE AMINO TRANSFERASE 20 U/L (14-36); BILIRUBIN,DIRECT 0.1 mg/dL (0.0-0.4); BILIRUBIN,TOTAL 0.3 mg/dL (0.2-1.3); BLOOD UREA NITROGEN 12 mg/dL (7-20); CALCIUM 9.7 mg/dL (8.4-10.2); CARBON DIOXIDE 30 mmol/L (22-30); CHLORIDE 102 mmol/L (98-107); GLUCOSE 101 mg/dL (75-110); POTASSIUM 4.5 mmol/L (3.6-5.0); SODIUM 140.5 mmol/L (137-145); TOTAL PROTEIN 7.2 g/dL (6.3-8.2); TRIGLYCERIDES 298 mg/dL (<150)
[2018-08-06 11:32] LABS: DIRECT LDL 111 mg/dL (<100)
[2018-08-06 11:37] LABS: VLDL CHOLESTEROL 59.6 mg/dL (10-31)
== END ==
LOC: CCC 09:53
DX: Z00.00 Encounter for general adult medical examination without abnormal findings (principal)
CPT/HCPCS: 36415; 80053; 80061; 83036; 84443; 85025

== ENCOUNTER 2018-12-21 18:37 | Emergency (ER) | payer SELFPAY ==
--- NOTE | 2018-12-21 19:13 | ER Document Report ---
ED Medical Screen (RME) - General Chief Complaint: Weakness Stated Complaint: FATIGUE Time Seen by Provider: 12/21/18 19:10 Primary Care Provider: [facility] [Primary Care Provider] - Follow up as needed Mode of Arrival: Ambulatory Information source: Patient Notes: 53-year-old female presented to ED for complaint of intermittent fatigue that is slowly been increasing over the last couple years and for the last 3 weeks she has had it 3 times. She states she has had an episode that is lasted since Monday. She states Monday night she vomited and has had a raspy voice and a cough since then. She states she has not been able to take a deep breath since then and it hurts in her chest and back when she takes a deep breath. She is alert oriented respirations regular and unlabored speaking in full sentences walks with even steady gait. She states she is extremely concerned because she has GERD and Emmanuel's esophagitis. She also has high blood pressure cholesterol anxiety TIA. She states she has had multiple hand surgeries foot surgeries bilateral tubal ligation and a tonsillectomy. She is a former smoker but no longer smokes. I have greeted and performed a rapid initial assessment of this patient. A comprehensive ED assessment and evaluation of the patient, analysis of test results and completion of medical decision making process will be conducted by an additional ED providers. Dictation of this chart was performed using voice recognition software; therefore, there may be some unintended grammatical errors. TRAVEL OUTSIDE OF THE [place] IN LAST 30 DAYS: No - Related Data Allergies/Adverse Reactions: morphine Adverse Reaction (Severe, Verified 12/21/18 18:39) SEVERE N/V oxycodone [From Percocet] Adverse Reaction (Severe, Verified 12/21/18 18:39) SEVERE N/V Past Medical History - Past Medical History Cardiac Medical History: Reports: Hx Hypercholesterolemia, Hx Hypertension Denies: Hx Coronary Artery Disease, Hx Heart Attack Pulmonary Medical History: Denies: Hx Asthma, Hx Bronchitis, Hx COPD, Hx Pneumonia Neurological Medical History: Reports: Hx Cerebrovascular Accident - TIA. Denies: Hx Seizures Renal/ Medical History: Denies: Hx Peritoneal Dialysis Musculoskeltal Medical History: Reports Hx Arthritis, Reports Hx Musculoskeletal Deformity - Carpal tunnel and ganglion cyst, Reports Hx Musculoskeletal Trauma - Torn tendon in the foot Psychiatric Medical History: Reports: Hx Depression Past Surgical History: Reports: Hx Orthopedic Surgery - left hand right foot, Hx Tonsillectomy - 2012, Hx Tubal Ligation. Denies: Hx Hysterectomy - Immunizations Hx Diphtheria, Pertussis, Tetanus Vaccination: Yes Physical Exam - Vital signs Vitals: Temp Pulse Resp Pulse Ox 98.6 F 100 18 97 12/21/18 18:46 12/21/18 18:46 12/21/18 18:46 12/21/18 18:46 Course - Vital Signs Vital signs: Temp Pulse Resp BP Pulse Ox 98.6 F 100 18 97 12/21/18 18:46 12/21/18 18:46 12/21/18 18:46 12/21/18 18:46 Doctor's Discharge - Discharge Referrals: [facility] [Primary Care Provider] - Follow up as needed
--- NOTE | 2018-12-21 20:25 | RADIOLOGY REPORT (SQ) ---
EXAM DESCRIPTION: XR CHEST 2 VIEWS COMPLETED DATE/TME: 12/21/2018 19:14 CLINICAL HISTORY: cough pain with deep breath COMPARISON: None. FINDINGS: Frontal and lateral views of the chest. The cardiomediastinal silhouette has normal size and contour. Mild patchy right midlung opacities. No pneumothorax or large effusion. No displaced rib fractures identified. Upper abdominal soft tissues are unremarkable. IMPRESSION: 1. Mild patchy right midlung opacity. This may represent developing bronchopneumonia. Continued radiographic follow-up to resolution recommended.
[2018-12-21 20:38] LABS: ABSOLUTE BASOPHILS # (AUTO) 0.1 10^3/uL (0.0-0.2); ABSOLUTE EOSINOPHILS # (AUTO) 0.2 10^3/uL (0.0-0.6); ABSOLUTE LYMPHOCYTES (AUTO) 2.3 10^3/uL (0.5-4.7); ABSOLUTE MONOCYTES (AUTO) 0.4 10^3/uL (0.1-1.4); BASOPHILS % (AUTO) 0.6 % (0-2); EOSINOPHILS % (AUTO) 2.2 % (0-6); HEMATOCRIT 36.2 % (36.0-47.0); HEMOGLOBIN 11.9 g/dL (12.0-15.5); LYMPHOCYTES % (AUTO) 22.8 % (13-45); MEAN CORPUSCULAR HEMOGLOBIN 26.5 pg (27.0-33.4); MEAN CORPUSCULAR HGB CONC 32.8 g/dL (32.0-36.0); MEAN CORPUSCULAR VOLUME 81 fl (80-97); MONOCYTES % (AUTO) 4.5 % (3-13); PLATELET COUNT 389 10^3/uL (150-450); RED BLOOD COUNT 4.48 10^6/uL (3.72-5.28); RED CELL DISTRIBUTION WIDTH 15.9 % (11.5-14.0); SEGMENTED NEUTROPHILS % (AUTO) 69.9 % (42-78); TOTAL CELLS COUNTED % (AUTO) 100 %
[2018-12-21 20:56] LABS: ALBUMIN 4.1 g/dL (3.5-5.0); ALKALINE PHOSPHATASE 64 U/L (38-126); ANION GAP 11 (5-19); ASPARTATE AMINO TRANSFERASE 22 U/L (14-36); BILIRUBIN,DIRECT 0.2 mg/dL (0.0-0.4); BILIRUBIN,TOTAL 0.4 mg/dL (0.2-1.3); BLOOD UREA NITROGEN 14 mg/dL (7-20); CALCIUM 9.8 mg/dL (8.4-10.2); CARBON DIOXIDE 28 mmol/L (22-30); CHLORIDE 102 mmol/L (98-107); GLUCOSE 92 mg/dL (75-110); POTASSIUM 4.5 mmol/L (3.6-5.0)
[2018-12-21 21:08] LABS: APPEARANCE,URINE CLOUDY; BILIRUBIN,URINE NEGATIVE (NEGATIVE); COLOR,URINE AMBER; GLUCOSE, URINE NEGATIVE (NEGATIVE); KETONES,URINE TRACE mg/dL (NEGATIVE); LEUKOCYTE ESTERASE,URINE LARGE (NEGATIVE); NITRITE,URINE NEGATIVE (NEGATIVE); PROTEIN,URINE NEGATIVE (NEGATIVE); URINE SPECIFIC GRAVITY 1.025; UROBILINOGEN,URINE NEGATIVE mg/dL (<2.0)
--- NOTE | 2018-12-21 22:36 | ER Document Report ---
ED General - General Chief Complaint: Weakness Stated Complaint: FATIGUE Time Seen by Provider: 12/21/18 19:10 [facility] - Follow up as needed Mode of Arrival: Ambulatory Notes: 53-year-old female patient emergency department chief complaint of cough and not feeling well. Patient states that she has significant reflux. States that on Monday she had a reflux episode and possibly aspirated a little bit but is not certain. Since that time she has been coughing a lot. Feels wiped out. In the past she states that when she felt this way she had low iron. Followed by her doctors at the [facility]. Has not had an endoscopy done in a few years because she has not had money. Has any other major symptoms. No sh ortness of breath per se. Mild cough. No pain in her legs. No prior history of blood clot. No prior history of heart attack. TRAVEL OUTSIDE OF THE [place] IN LAST 30 DAYS: No - HPI Onset/Duration: Gradual Quality of pain: No pain Severity: Mild Pain Level: Denies Associated symptoms: Weakness - Related Data Allergies/Adverse Reactions: morphine Adverse Reaction (Severe, Verified 12/21/18 18:39) SEVERE N/V oxycodone [From Percocet] Adverse Reaction (Severe, Verified 12/21/18 18:39) SEVERE N/V Past Medical History - General Information source: Patient - Social History Smoking Status: Former Smoker Chew tobacco use (# tins/day): No Frequency of alcohol use: None Drug Abuse: None Lives with: Alone Family History: CAD, CVA, DM, Hyperlipidemia, Hypertension, Thyroid Disfunction. denies: COPD, Malignancy Patient has suicidal ideation: No Patient has homicidal ideation: No - Past Medical History Cardiac Medical History: Reports: Hx Hypercholesterolemia, Hx Hypertension Denies: Hx Coronary Artery Disease, Hx Heart Attack Pulmonary Medical History: Denies: Hx Asthma, Hx Bronchitis, Hx COPD, Hx Pneumonia Neurological Medical History: Reports: Hx Cerebrovascular Accident - TIA. Denies: Hx Seizures Renal/ Medical History: Denies: Hx Peritoneal Dialysis GI Medical History: Reports: Hx Gastroesophageal Reflux Disease Musculoskeletal Medical History: Reports Hx Arthritis, Reports Hx Musculoskeletal Deformity - Carpal tunnel and ganglion cyst, Reports Hx Musculoskeletal Trauma - Torn tendon in the foot Psychiatric Medical History: Reports: Hx Depression Past Surgical History: Reports: Hx Orthopedic Surgery - left hand right foot, Hx Tonsillectomy - 2012, Hx Tubal Ligation. Denies: Hx Hysterectomy - Immunizations Hx Diphtheria, Pertussis, Tetanus Vaccination: Yes Review of Systems - Review of Systems Notes: Constitutional: denies: Chills, Diaphoresis, Fever, Malaise, Weakness EENT: denies: Eye discharge, Blurred vision, Tearing, Double vision, Nose congestion, Nose discharge, Throat swelling, Mouth pain Cardiovascular: denies: Palpitations, Heart racing, Orthopnea, Dyspnea, -Chest pain Respiratory: +Cough, -Hurts to breathe, +Wheezing, +Shortness of breath Gastrointestinal: denies: Abdominal pain, Diarrhea, Nausea, Vomiting, Black stools, bright red blood in stool Genitourinary: denies: Burning, Dysuria, Discharge, Frequency, Flank pain, Hematuria Musculoskeletal: denies: Joint pain, Joint swelling, Muscle pain, Muscle stiffness, back pain Hematologic/Lymphatic: denies: Anemia, Easy bleeding, Easy bruising, Blood clots Neurological/Psychological: denies: Confusion, Dementia, Depression, Loss of consciousness Skin: No lesions, no masses, no skin breakdown, no abscesses Physical Exam - Vital signs Vitals: Temp Pulse Resp Pulse Ox 98.6 F 100 18 97 12/21/18 18:46 12/21/18 18:46 12/21/18 18:46 12/21/18 18:46 Interpretation: Normal - General General appearance: Appears well, Alert - HEENT Head: Normocephalic, Atraumatic Eyes: Normal Pupils: PERRL - Respiratory Respiratory status: No respiratory distress Chest status: Nontender Breath sounds: Other - Patient has a faint rale right mid/right low lung base. Chest palpation: Normal - Cardiovascular Rhythm: Regular Heart sounds: Normal auscultation Murmur: No - Abdominal Inspection: Normal Distension: No distension Bowel sounds: Normal Tenderness: Nontender Organomegaly: No organomegaly - Back Back: Normal, Nontender - Extremities General upper extremity: Normal inspection, Nontender, Normal color, Normal ROM, Normal temperature General lower extremity: Normal inspection, Nontender, Normal color, Normal ROM, Normal temperature, Normal weight bearing. No: Jie's sign - Neurological Neuro grossly intact: Yes Cognition: Normal Orientation: AAOx4 [place] Coma Scale Eye Opening: Spontaneous [place] Coma Scale Verbal: Oriented Janett Coma Scale Motor: Obeys Commands Janett Coma Scale Total: 15 Speech: Normal Motor strength normal: LUE, RUE, LLE, RLE Sensory: Normal - Psychological Associated symptoms: Normal affect, Normal mood - Skin Skin Temperature: Warm Skin Moisture: Dry Skin Color: Normal Course - Re-evaluation Re-evalutation: 12/21/18 23:45 Laboratory 12/21/18 12/21/18 12/21/18 20:20 20:20 20:20 WBC 10.0 RBC 4.48 Hgb 11.9 L Hct 36.2 MCV 81 MCH 26.5 L MCHC 32.8 RDW 15.9 H Plt Count 389 Seg Neutrophils % 69.9 Lymphocytes % 22.8 Monocytes % 4.5 Eosinophils % 2.2 Basophils % 0.6 Absolute Neutrophils 7.0 Absolute Lymphocytes 2.3 Absolute Monocytes 0.4 Absolute Eosinophils 0.2 Absolute Basophils 0.1 Sodium 140.5 Potassium 4.5 Chloride 102 Carbon Dioxide 28 Anion Gap 11 BUN 14 Creatinine 0.85 Est GFR ( Amer) > 60 Est GFR (Non-Af Amer) > 60 Glucose 92 Calcium 9.8 Total Bilirubin 0.4 Direct Bilirubin 0.2 Neonat Total Bilirubin Not Reportable Neonat Direct Bilirubin Not Reportable Neonat Indirect Bili Not Reportable AST 22 ALT 20 Alkaline Phosphatase 64 Total Protein 7.0 Albumin 4.1 Lipase 124.5 Urine Color MARYURI Urine Appearance CLOUDY Urine pH 5.0 Ur Specific [place] 1.025 Urine Protein NEGATIVE Urine Glucose (UA) NEGATIVE Urine Ketones TRACE H Urine Blood NEGATIVE Urine Nitrite NEGATIVE Urine Bilirubin NEGATIVE Urine Urobilinogen NEGATIVE Ur Leukocyte Esterase LARGE H Urine WBC (Auto) 5 Urine RBC (Auto) 5 Urine Bacteria (Auto) TRACE Squamous Epi Cells Auto 9 Urine Mucus (Auto) RARE Urine Ascorbic Acid 20 H Chest X-Ray 12/21/18 19:14 IMPRESSION: 1. Mild patchy right midlung opacity. This may represent developing bronchopneumonia. Continued radiographic follow-up to resolution recommended. 12/21/18 23:45 Based on this I am going to go ahead and treat her. I am starting her on some breathing treatments and azithromycin. Patient is very well-appearing time. No fever. White blood cell count at 10. I am recommending that if she gets worse she should return and may be needing to be admitted to the hospital. Otherwise her vital signs are normal. She is not hypoxic and very well-appearing. - Vital Signs Vital signs: Temp Pulse Resp BP Pulse Ox 98.6 F 100 18 97 12/21/18 18:46 12/21/18 18:46 12/21/18 18:46 12/21/18 18:46 - Laboratory Result Diagrams: 12/21/18 20:20 12/21/18 20:20 Laboratory results interpreted by me: 12/21/18 12/21/18 20:20 20:20 Hgb 11.9 L MCH 26.5 L RDW 15.9 H Urine Ketones TRACE H Ur Leukocyte Esterase LARGE H Urine Ascorbic Acid 20 H Discharge - Discharge Clinical Impression: Right middle lobe pneumonia Qualifiers: Pneumonia type: due to unspecified organism Qualified Code(s): J18.1 - Lobar pneumonia, unspecified organism Condition: Good Disposition: HOME, SELF-CARE Instructions: Pneumonia ([facility]) Additional Instructions: It appears that you have a developing pneumonia. We are starting you on antibiotics. If for some reason this is not getting better or you are getting worse over the next 24 to 48 hours then you should return. Take all of the antibiotics as prescribed. Give yourself a breathing treatment every 4 hours while awake. Follow-up with your doctor on Monday. Prescriptions: Azithromycin [Zithromax 250 mg Tablet] 250 mg PO DAILY 6 Days #6 tablet Referrals: [facility] [Primary Care Provider] - Follow up as needed
[2018-12-21] MEDS ORDERED: AZITHROMYCIN 250 MG TABLET PO ONE ×2 (22:57→22:58)
[2018-12-21] MEDS ORDERED: IPRATROPIUM/ALBUTEROL 0.5-2.5 MG/3 ML AMPUL NEB ONE (23:26)
[2018-12-21] MEDS ORDERED: ALBUTEROL SULFATE HFA (90 MCG/PUFF) 8 GM MDI (1 MDI/ER DISP) IH ONE (23:47)
[2018-12-22 00:02] VITALS: BP 146/83
== END 2018-12-22 00:02 | disposition home or self-care (01) ==
LOC: ER 18:37
DX: J18.1 Lobar pneumonia, unspecified organism (principal); R53.1 Weakness; E78.00 Pure hypercholesterolemia, unspecified; I10 Essential (primary) hypertension; Z86.73 Personal history of transient ischemic attack (TIA), and cerebral infarction without residual deficits; Z88.6 Allergy status to analgesic agent; Z98.51 Tubal ligation status
CPT/HCPCS: 36415; 83690; 85025; 80053; 81001; 71046; J3490; J7620; 94640; 99283

== ENCOUNTER 2018-12-31 16:23 | Emergency (ER) | payer SELFPAY ==
--- NOTE | 2018-12-31 17:08 | ER Document Report ---
ED Medical Screen (RME) - General Chief Complaint: Fever Stated Complaint: FOLLOWUP Time Seen by Provider: 12/31/18 17:06 Primary Care Provider: [facility] [Primary Care Provider] - Follow up as needed Mode of Arrival: Ambulatory Information source: Patient Notes: Patient is a 53-year-old female presented emergency department chief complaint of cough persistent cough and fever after being diagnosed with pneumonia 10 days ago. Patient reports she completed a course of azithromycin but has not progressed as well as she felt she should have. Patient was unable to get into see her primary care provider. Exam: Lung sounds clear and equal bilaterally. Persistent cough noted. I have greeted and performed a rapid initial assessment of this patient. A comprehensive ED assessment and evaluation of the patient, analysis of test results and completion of the medical decision making process will be conducted by additional ED providers. I have specifically instructed the patient or family members with the patient to immediately return to any nursing staff should anything change in the patient's condition or with their chief complaint. This medical record was dictated with voice recognizing software. There may be grammatical, syntax errors that are unintended. TRAVEL OUTSIDE OF THE [place] IN LAST 30 DAYS: No - Related Data Allergies/Adverse Reactions: morphine Adverse Reaction (Severe, Verified 12/21/18 18:39) SEVERE N/V oxycodone [From Percocet] Adverse Reaction (Severe, Verified 12/21/18 18:39) SEVERE N/V Past Medical History - Past Medical History Cardiac Medical History: Reports: Hx Hypercholesterolemia, Hx Hypertension Denies: Hx Coronary Artery Disease, Hx Heart Attack Pulmonary Medical History: Denies: Hx Asthma, Hx Bronchitis, Hx COPD, Hx Pneumonia Neurological Medical History: Reports: Hx Cerebrovascular Accident - TIA. Denies: Hx Seizures Renal/ Medical History: Denies: Hx Peritoneal Dialysis GI Medical History: Reports: Hx Gastroesophageal Reflux Disease Musculoskeltal Medical History: Reports Hx Arthritis, Reports Hx Musculoskeletal Deformity - Carpal tunnel and ganglion cyst, Reports Hx Musculoskeletal Trauma - Torn tendon in the foot Psychiatric Medical History: Reports: Hx Depression Past Surgical History: Reports: Hx Orthopedic Surgery - left hand right foot, Hx Tonsillectomy - 2011, Hx Tubal Ligation. Denies: Hx Hysterectomy - Immunizations Hx Diphtheria, Pertussis, Tetanus Vaccination: Yes Physical Exam - Vital signs Vitals: Temp Pulse Resp BP Pulse Ox 98.4 F 73 18 121/68 96 12/31/18 16:38 12/31/18 16:38 12/31/18 16:38 12/31/18 16:38 12/31/18 16:38 Course - Vital Signs Vital signs: Temp Pulse Resp BP Pulse Ox 98.4 F 73 18 121/68 96 12/31/18 16:38 12/31/18 16:38 12/31/18 16:38 12/31/18 16:38 12/31/18 16:38 Doctor's Discharge - Discharge Referrals: [facility] [Primary Care Provider] - Follow up as needed
--- NOTE | 2018-12-31 17:39 | RADIOLOGY REPORT (SQ) ---
EXAM DESCRIPTION: CHEST 2 VIEWS COMPLETED DATE/TIME: 12/31/2018 5:21 pm REASON FOR STUDY: recent pneumonia, fever COMPARISON: 12/21/2018 EXAM PARAMETERS: NUMBER OF VIEWS: two views TECHNIQUE: Digital Frontal and Lateral radiographic views of the chest acquired. RADIATION DOSE: NA LIMITATIONS: none FINDINGS: LUNGS AND PLEURA: No opacities, masses or pneumothorax. No pleural effusion. MEDIASTINUM AND HILAR STRUCTURES: Small hiatal hernia. HEART AND VASCULAR STRUCTURES: Heart normal size. No evidence for failure. BONES: No acute findings. HARDWARE: None in the chest. OTHER: No other significant finding. IMPRESSION: NO ACUTE RADIOGRAPHIC FINDING IN THE CHEST. TECHNICAL DOCUMENTATION: JOB ID: [id number] [employer]- All Rights Reserved Reading location - IP/workstation name: [email or web address]
--- NOTE | 2018-12-31 19:35 | ER Document Report ---
ED General - General Chief Complaint: Fever Stated Complaint: FOLLOWUP Time Seen by Provider: 12/31/18 17:06 [facility] - Follow up in 3-5 days Mode of Arrival: Ambulatory Notes: Patient is a 53-year-old female with past medical history of hypertension, hyperlipidemia, TIA, and allergies who presents to emergency department with a chief complaint of a low-grade fever. She states that her temperature was about 99 F. She was diagnosed with pneumonia 10 days ago and was given a Z-Duncan. She states that her voice seems more hoarse than normal and she is worried that she has pneumonia again. Denies any shortness of breath or difficulty breathing. Denies any chest pain. TRAVEL OUTSIDE OF THE [place] IN LAST 30 DAYS: No - Related Data Allergies/Adverse Reactions: morphine Adverse Reaction (Severe, Verified 12/21/18 18:39) SEVERE N/V oxycodone [From Percocet] Adverse Reaction (Severe, Verified 12/21/18 18:39) SEVERE N/V Past Medical History - General Information source: Patient - Social History Smoking Status: Former Smoker Family History: CAD, CVA, DM, Hyperlipidemia, Hypertension, Thyroid Disfunction. denies: COPD, Malignancy - Past Medical History Cardiac Medical History: Reports: Hx Hypercholesterolemia, Hx Hypertension Denies: Hx Coronary Artery Disease, Hx Heart Attack Pulmonary Medical History: Denies: Hx Asthma, Hx Bronchitis, Hx COPD, Hx Pneumonia Neurological Medical History: Reports: Hx Cerebrovascular Accident - TIA. Denies: Hx Seizures Renal/ Medical History: Denies: Hx Peritoneal Dialysis GI Medical History: Reports: Hx Gastroesophageal Reflux Disease Musculoskeletal Medical History: Reports Hx Arthritis, Reports Hx Musculoskeletal Deformity - Carpal tunnel and ganglion cyst, Reports Hx Musculoskeletal Trauma - Torn tendon in the foot Psychiatric Medical History: Reports: Hx Depression Past Surgical History: Reports: Hx Orthopedic Surgery - left hand right foot, Hx Tonsillectomy - 2012, Hx Tubal Ligation. Denies: Hx Hysterectomy - Immunizations Hx Diphtheria, Pertussis, Tetanus Vaccination: Yes Review of Systems - Review of Systems Notes: REVIEW OF SYSTEMS: CONSTITUTIONAL : See HPI EENT: Denies eye, ear, throat, or mouth pain, discharge, or symptoms. Denies nasal or sinus congestion. CARDIOVASCULAR: Denies chest pain. RESPIRATORY: See HPI GASTROINTESTINAL: Denies nausea, vomiting, and diarrhea. Denies abdominal pain. Denies constipation. GENITOURINARY: Denies difficulty urinating, burning, blood in urine, urgency or frequency. MUSCULOSKELETAL: Denies neck and back pain. Denies joint pain or swelling. SKIN: Denies rash, itchiness, or lesions HEMATOLOGIC : Denies easy bruising or bleeding. LYMPHATIC: Denies swollen, painful, enlarged glands. NEUROLOGICAL: Denies no numbness or tingling denies weakness. Denies headache. Denies altered mental status. Denies alteration in speech. PSYCHIATRIC: Denies stress, anxiety, alteration in sleep patterns, or depression. All other systems reviewed and negative. Physical Exam - Vital signs Vitals: Temp Pulse Resp BP Pulse Ox 98.4 F 73 18 121/68 96 12/31/18 16:38 12/31/18 16:38 12/31/18 16:38 12/31/18 16:38 12/31/18 16:38 - Notes Notes: PHYSICAL EXAMINATION: GENERAL: Appears well, healthy, well-nourished, no acute distress. HEAD: Normocephalic, atraumatic. EYES: PERRL, conjunctiva normal, all extraocular movements intact, sclera nonicteric ENT: Moist mucous membranes. NECK: Supple, no noticeable swelling, redness, rash. Normal range of motion. LUNGS: Equal breath sounds bilaterally and clear to auscultation. No wheezes rales or rhonchi. CARDIOVASCULAR: S1-S2, regular rate, regular rhythm. Radial pulses 2+, normal. ABDOMEN: Normoactive bowel sounds. Soft, nontender, no guarding, no rebound tenderness, and no masses palpated. EXTREMITIES: Normal strength and range of motion, no pitting or edema. No cyanosis. NEUROLOGICAL: Moves all extremities upon command. Strength 5/5 in all extremities. PSYCH: Normal mood, normal affect. SKIN: Warm, dry. No rash, lesions, ulcerations noted. Normal skin turgor. Course - Re-evaluation Re-evalutation: 12/31/18 19:35 Patient's chest x-ray in triage was normal. No pneumonia noted. Patient will be started on Singulair, she is supposed to be on this medication. She will receive a dose here in the emergency department. She will follow-up with the [facility] in regards to this visit. Labs not indicated at this time. I have a very low suspicion for a pulmonary embolism, or any life- threatening etiology at this time. Follow-up precautions were given. Verbal discharge instructions were given to the patient. They verbalized understanding. They are stable for discharge. - Vital Signs Vital signs: Temp Pulse Resp BP Pulse Ox 97.5 F 76 16 110/63 100 12/31/18 19:48 12/31/18 19:48 12/31/18 19:48 12/31/18 19:48 12/31/18 19:48 Discharge - Discharge Clinical Impression: Upper respiratory infection, viral Fever Qualifiers: Fever type: unspecified Qualified Code(s): R50.9 - Fever, unspecified Condition: Stable Disposition: HOME, SELF-CARE Instructions: Acetaminophen, Fever ([facility]) Additional Instructions: You are seen today in the emergency department for fever. Your x-ray shows that the pneumonia cleared up. [facility]. You are also being prescribed Singulair, medication to help dry up the cough you have. Please take as directed. Prescriptions: Montelukast Sodium [Singulair 10 mg Tablet] 10 mg PO QHS #30 tablet [facility] [Primary [facility]] - Follow up in 3-5 days
[2018-12-31] MEDS ORDERED: MONTELUKAST SODIUM 10 MG TABLET PO ONE (19:36)
[2018-12-31 19:50] VITALS: BP 110/63
== END 2018-12-31 19:50 | disposition home or self-care (01) ==
LOC: ER 16:23
DX: J06.9 Acute upper respiratory infection, unspecified (principal); R50.9 Fever, unspecified; E78.00 Pure hypercholesterolemia, unspecified; I10 Essential (primary) hypertension; Z86.73 Personal history of transient ischemic attack (TIA), and cerebral infarction without residual deficits; Z88.6 Allergy status to analgesic agent; Z98.51 Tubal ligation status
CPT/HCPCS: 71046; 99283

== ENCOUNTER 2019-03-26 18:34 | Emergency (ER) | payer SELFPAY ==
--- NOTE | 2019-03-26 18:59 | ER Document Report ---
ED Medical Screen (RME) - General Chief Complaint: Fever Stated Complaint: FEVER Time Seen by Provider: 03/26/19 18:59 Primary Care Provider: [facility] [Primary Care Provider] - Follow up as needed TRAVEL OUTSIDE OF THE [place] IN LAST 30 DAYS: No - HPI Notes: 03/26/19 19:46 53-year-old female to the emergency department with complaints of body aches, sore throat, nasal congestion, cough for the past 2 days. She states that she started to have a fever last night. She states the T-max of her fevers have been 102. She states that she is taking aspirin and Motrin today for fever reduction. She denies any chest pain, shortness of breath, abdominal pain, nausea, vomiting, diarrhea. Not had a flu shot this season I performed a brief medical screening exam on the patient and determined that they need further evaluation and management by me inside provider. I have placed initial orders to heater helper in expedite care of the patient. - Related Data Allergies/Adverse Reactions: morphine Adverse Reaction (Severe, Verified 03/26/19 18:59) SEVERE N/V oxycodone [From Percocet] Adverse Reaction (Severe, Verified 03/26/19 18:59) SEVERE N/V Past Medical History - Past Medical History Cardiac Medical History: Reports: Hx Hypercholesterolemia, Hx Hypertension Denies: Hx Coronary Artery Disease, Hx Heart Attack Pulmonary Medical History: Denies: Hx Asthma, Hx Bronchitis, Hx COPD, Hx Pneumonia Neurological Medical History: Reports: Hx Cerebrovascular Accident - TIA. Denies: Hx Seizures Renal/ Medical History: Denies: Hx Peritoneal Dialysis GI Medical History: Reports: Hx Gastroesophageal Reflux Disease Musculoskeltal Medical History: Reports Hx Arthritis, Reports Hx Musculoskeletal Deformity - Carpal tunnel and ganglion cyst, Reports Hx Musculoskeletal Trauma - Torn tendon in the foot Psychiatric Medical History: Reports: Hx Depression Past Surgical History: Reports: Hx Orthopedic Surgery - left hand right foot, Hx Tonsillectomy - 2011, Hx Tubal Ligation. Denies: Hx Hysterectomy - Immunizations Hx Diphtheria, Pertussis, Tetanus Vaccination: Yes Doctor's Discharge - Discharge [facility] - Follow up as needed
[2019-03-26] MEDS ORDERED: ACETAMINOPHEN 325 MG TABLET PO ONE (19:01)
--- NOTE | 2019-03-26 19:55 | RADIOLOGY REPORT (SQ) ---
EXAM DESCRIPTION: CHEST 2 VIEWS COMPLETED DATE/TIME: 03/26/2019 7:27 pm REASON FOR STUDY: cough, fever COMPARISON: 12/31/2018 TECHNIQUE: Frontal and lateral radiographic views of the chest acquired. NUMBER OF VIEWS: Two view. LIMITATIONS: None. FINDINGS: LUNGS AND PLEURA: No pneumothorax. Minimal lingular subsegmental atelectasis. No consoli dation or pleural effusion. MEDIASTINUM AND HILAR STRUCTURES: Stable small hiatus hernia. HEART AND VASCULAR STRUCTURES: Stable. BONES: No acute findings. HARDWARE: None in the chest. OTHER: No other significant finding. IMPRESSION: Minimal lingular subsegmental atelectasis. No consolidation or pleural effusion. TECHNICAL DOCUMENTATION: JOB ID: [id number] [place]-72 2010 [employer]- All Rights Reserved Reading location - IP/workstation name: [email or web address]
[2019-03-26 20:32] LABS: A TYPE INFLUENZA AG NEGATIVE (NEGATIVE); B INFLUENZA AG NEGATIVE (NEGATIVE)
[2019-03-26] MEDS ORDERED: AZITHROMYCIN 250 MG TABLET PO ONE (21:12)
--- NOTE | 2019-03-26 21:16 | ER Document Report ---
HPI - HPI Time Seen by Provider: 03/26/19 18:59 Pain Level: 3 Context: Patient is a 53-year-old female who presents the emergency department with a chief complaint of a cough, congestion, runny nose, and fever. Patient had a fever of max 102. Patient states that she has been coughing a lot. Past medical history includes hypertension, hyperlipidemia, pneumonia, TIA, and allergies. - CONSTITUTIONAL Constitutional: REPORTS: Fever - EENT EENT: REPORTS: Sore Throat, Nasal Drainage-Purulent, Congestion. DENIES: Ear Pain, Eye problems - NEURO Neurology: DENIES: Headache - CARDIOVASCULAR Cardiovascular: DENIES: Chest pain - RESPIRATORY Respiratory: REPORTS: Coughing - GASTROINTESTINAL Gastrointestinal: DENIES: Abdominal Pain, Nausea, Patient vomiting, Diarrhea - REPRODUCTIVE Reproductive: DENIES: : - MUSCULOSKELETAL Musculoskeletal: DENIES: Neck Pain - DERM Skin Color: Normal Skin Problems: None Past Medical History - Social History Smoking Status: Never Smoker Chew tobacco use (# tins/day): No Frequency of alcohol use: None Family History: CAD, CVA, DM, Hyperlipidemia, Hypertension, Thyroid Disfunction. denies: COPD, Malignancy Patient has suicidal ideation: No Patient has homicidal ideation: No - Past Medical History Cardiac Medical History: Reports: Hx Hypercholesterolemia, Hx Hypertension Denies: Hx Coronary Artery Disease, Hx Heart Attack Pulmonary Medical History: Denies: Hx Asthma, Hx Bronchitis, Hx COPD, Hx Pneumonia Neurological Medical History: Reports: Hx Cerebrovascular Accident - TIA. Denies: Hx Seizures Renal/ Medical History: Denies: Hx Peritoneal Dialysis GI Medical History: Reports: Hx Gastroesophageal Reflux Disease Musculoskeletal Medical History: Reports Hx Arthritis, Reports Hx Musculoskeletal Deformity - Carpal tunnel and ganglion cyst, Reports Hx Musculoskeletal Trauma - Torn tendon in the foot Psychiatric Medical History: Reports: Hx Depression Past Surgical History: Reports: Hx Orthopedic Surgery - left hand right foot, Hx Tonsillectomy - 2012, Hx Tubal Ligation. Denies: Hx Hysterectomy - Immunizations Hx Diphtheria, Pertussis, Tetanus Vaccination: Yes Vertical Provider Document - CONSTITUTIONAL Agree With Documented VS: Yes Exam Limitations: No Limitations General Appearance: No Apparent Distress - INFECTION CONTROL TRAVEL OUTSIDE OF THE [place] IN LAST 30 DAYS: No - HEENT HEENT: Atraumatic, Normocephalic, PERRLA, Pharyngeal Tenderness, Pharyngeal Erythema. negative: Conjuctival Injection, Pharyngeal Exudate, Tympanic Membrane Red, Tympanic Membrane Bulging - NECK Neck: Normal Inspection - RESPIRATORY Respiratory: No Respiratory Distress, Rhonchi - right middle lobe - CARDIOVASCULAR Cardiovascular: Regular Rhythm, Tachycardia Pulses: Normal: Radial - MUSCULOSKELETAL/EXTREMETIES Musculoskeletal/Extremeties: FROM - NEURO Level of Consciousness: Awake, Alert, Appropriate Motor/Sensory: No Motor Deficit, No Sensory Deficit - DERM Integumentary: Warm, Dry Course - Re-evaluation Re-evalutation: 03/26/19 21:13 I reviewed the chest x-ray and it appears that the patient may have the start of a pneumonia in the right middle lobe. We will start her on azithromycin. We will also give her Tessalon Perles. She will follow-up with her primary care provider in regards to this visit. Very low suspicion for sepsis. Follow-up precautions were given. Verbal discharge instructions were given to the patient. They verbalized understanding. They are stable for discharge. 03/27/19 13:32 I realized I forgot to order the patient's tessalon Perles. I contacted the patient and she would like me to fill them in at [facility] in [place]. I called the pharmacist and had tessalon Perles filled 100 mg every 8 hours as needed for cough. #40. Read back by pharmacist Discharge - Discharge Clinical Impression: Cough Fever Qualifiers: Fever type: unspecified Qualified Code(s): R50.9 - Fever, unspecified Condition: Stable Disposition: HOME, SELF-CARE Additional Instructions: You were seen today in the emergency department for a fever and a cough. You are being started on antibiotics. Please make sure you finish all your antibiotics as prescribed. Please take ibuprofen 600 mg and acetaminophen 1000 mg every 6 hours for your fever. Make sure you drink plenty of fluid. Stay well rested.Follow-up with your primary care provider in regards to this visit. If you have worsening symptoms, please return to the emergency department. Prescriptions: Azithromycin [Zithromax 250 mg Tablet] 250 mg PO DAILY #4 tablet Forms: Return to Work Referrals: [facility] [Primary [facility]] - Follow up in 3-5 days
[2019-03-26 21:25] VITALS: BP 105/68
== END 2019-03-26 21:39 | disposition home or self-care (01) ==
LOC: ER 18:34
DX: J02.9 Acute pharyngitis, unspecified (principal); R05 Cough; R50.9 Fever, unspecified; R68.89 Other general symptoms and signs; E78.00 Pure hypercholesterolemia, unspecified; I10 Essential (primary) hypertension; Z86.73 Personal history of transient ischemic attack (TIA), and cerebral infarction without residual deficits; Z98.51 Tubal ligation status
CPT/HCPCS: 71046; 87804; 99283

== ENCOUNTER 2019-04-02 14:00 | Emergency (ER) | payer SELFPAY ==
--- NOTE | 2019-04-02 14:11 | ER Document Report ---
HPI - HPI Patient complains to provider of: cough, history of pneumonia Time Seen by Provider: 04/02/19 14:05 Onset: Other Onset/Duration: Persistent Context: 53-year-old female with history of pneumonia presents emergency department with reports she still coughing. She reports she was seen here last week and placed on antibiotics, Z-Duncan. She reports her providers at [facility] but they cannot see her and they told her to come here if she is still not feeling good. She reports cough. Reports no fever since last . Denies vomiting diarrhea. Respiratory rate even unlabored no shortness of breath noted. Associated Symptoms: Productive cough Exacerbated by: Denies Relieved by: Denies Similar symptoms previously: Yes Recently seen / treated by doctor: Yes - REPRODUCTIVE Reproductive: DENIES: : Past Medical History - General Information source: Patient Last Menstrual Period: Menopause - Social History Smoking Status: Unknown if Ever Smoked Cigarette use (# per day): No Frequency of alcohol use: None Drug Abuse: None Family History: CAD, CVA, DM, Hyperlipidemia, Hypertension, Thyroid Disfunction. denies: COPD, Malignancy Patient has suicidal ideation: No Patient has homicidal ideation: No - Past Medical History Cardiac Medical History: Reports: Hx Hypercholesterolemia, Hx Hypertension Denies: Hx Coronary Artery Disease, Hx Heart Attack Pulmonary Medical History: Reports: Hx Pneumonia Denies: Hx Asthma, Hx Bronchitis, Hx COPD Neurological Medical History: Reports: Hx Cerebrovascular Accident - TIA. Denies: Hx Seizures Renal/ Medical History: Denies: Hx Peritoneal Dialysis GI Medical History: Reports: Hx Gastroesophageal Reflux Disease Musculoskeletal Medical History: Reports Hx Arthritis, Reports Hx Musculoskeletal Deformity - Carpal tunnel and ganglion cyst, Reports Hx Musculoskeletal Trauma - Torn tendon in the foot Psychiatric Medical History: Reports: Hx Depression Past Surgical History: Reports: Hx Orthopedic Surgery - left hand right foot, Hx Tonsillectomy - 2012, Hx Tubal Ligation. Denies: Hx Hysterectomy - Immunizations Hx Diphtheria, Pertussis, Tetanus Vaccination: Yes Vertical Provider Document - CONSTITUTIONAL Agree With Documented VS: Yes Exam Limitations: No Limitations General Appearance: WD/WN, No Apparent Distress - Nontoxic looking - INFECTION CONTROL TRAVEL OUTSIDE OF THE [place] IN LAST 30 DAYS: No - HEENT HEENT: Atraumatic, Normocephalic. negative: Conjuctival Injection - NECK Neck: Normal Inspection, Supple. negative: Lymphadenopathy-Left, Lymphadenopathy-Right - RESPIRATORY Respiratory: Breath Sounds Normal, No Respiratory Distress - CARDIOVASCULAR Cardiovascular: Regular Rate, Regular Rhythm - GI/ABDOMEN Gastrointestinal: Abdomen Soft, Abdomen Non-Tender - BACK Back: Normal Inspection - MUSCULOSKELETAL/EXTREMETIES Musculoskeletal/Extremeties: NILES KYLE - NEURO Level of Consciousness: Awake, Alert, Appropriate Motor/Sensory: No Motor Deficit - DERM Integumentary: Warm, Dry Course - Re-evaluation Re-evalutation: 04/02/19 14:10 53-year-old female presents today with productive cough history of pneumonia reports she still coughing. Denies fever vomiting diarrhea chest x-ray ordered. Patient respiratory rate even unlabored clear. 04/02/19 14:56 Patient instructed on pneumonia x-ray. Instructed on Augmentin. She reports she is taking in the past without any problems. She was instructed to return the emergency department for concerns worsening symptoms fever difficulty breathing she verbalized understanding to all instructions. Chest X-Ray 04/02/19 14:08 IMPRESSION: Ill-defined lingular opacities suggestive of pneumonia. No significant effusion. - Diagnostic Test Radiology reviewed: Image reviewed, Reports reviewed Discharge - Discharge Clinical Impression: Cough Pneumonia Qualifiers: Pneumonia type: due to unspecified organism Laterality: unspecified laterality Lung location: unspecified part of lung Qualified Code(s): J18.9 - Pneumonia, unspecified organism Condition: Stable Disposition: HOME, SELF-CARE Instructions: Acetaminophen, Augmentin ([facility]) Additional Instructions: *You have been evaluated for cold symptoms today, cough, Pneumonia *Increase fluid intake as discussed *Take medication as prescribed *Monitor your temperature, take Tylenol as indicated *Follow up with a primary care provider within one week for recheck *Return to ED for worsening condition, changes, needs, concerns, difficulty breathing Prescriptions: Amox Tr/Potassium Clavulanate [Augmentin 875-125 mg Tablet] 1 tab PO BID #20 tablet [facility] [Primary [facility]] - Follow up as needed
--- NOTE | 2019-04-02 14:49 | RADIOLOGY REPORT (SQ) ---
EXAM DESCRIPTION: CHEST 2 VIEWS COMPLETED DATE/TIME: 04/02/2019 2:27 pm REASON FOR STUDY: hx pneumonia still coughing COMPARISON: 03/26/2019 EXAM PARAMETERS: NUMBER OF VIEWS: two views TECHNIQUE: Digital Frontal and Lateral radiographic views of the chest acquired. RADIATION DOSE: NA LIMITATIONS: none FINDINGS: LUNGS AND PLEURA: Ill-defined lingular opacities. No significant effusion. No pneumothor ax. MEDIASTINUM AND HILAR STRUCTURES: No masses or contour abnormalities. HEART AND VASCULAR STRUCTURES: Heart normal size. No evidence for failure. BONES: No acute findings. HARDWARE: None in the chest. OTHER: No other significant finding. IMPRESSION: Ill-defined lingular opacities suggestive of pneumonia. No significant effusion. TECHNICAL DOCUMENTATION: JOB ID: [id number] [employer]- All Rights Reserved Reading location - IP/workstation name: [email or web address]
[2019-04-02 15:16] VITALS: BP 133/75
== END 2019-04-02 15:19 | disposition home or self-care (01) ==
LOC: ER 14:00
DX: J18.9 Pneumonia, unspecified organism (principal); R05 Cough; I10 Essential (primary) hypertension
CPT/HCPCS: 71046; 99283

== ENCOUNTER → 2019-08-09 | Outpatient (CLI) | payer SELFPAY ==
--- NOTE | 2019-08-09 11:33 | ER RDC ASSESSMENT REPORT ---
Intake - In the Last 14 days Have you traveled outside [place]?: No Have you been in close contact with someone CONFIRMED: No Worked in Healthcare?: No - Symptoms Subjective Fever([place] feverish): Yes Chills: Yes Muscule Aches: Yes Runny Nose: Yes Sore Throat: Yes Cough (New or worsening chronic cough): Yes --How many day(s)?: Reports dry cough specially with allergies past 2 days Shortness of breath: Yes Nausea or Vomiting: No Headache: Yes Abdominal Pain: No Diarrhea(3 or more loose stools in last 24 hours): No - Do you have any of the following Chronic lung disease: Asthma or emphysema or COPD: No Cystic Fibrosis: No Diabetes: No High Blood Pressure: Yes Cardiovascular Disease: Yes Chronic Kidney Disease: No Chronic Liver Disease: No Chronic blood disorder like Sickle Cell Disease: No Weak immune system due to disease or medication: No Neurological Condition Comment: With history of mini stroke 2011 Developmental delay - Moderate to Severe: No Recent (within past 2 weeks) or current : No Morbid Obesity (>100 pounds over ideal weight): No - Objective Temperature: 97.9 F Pulse Rate: 76 Respiratory Rate: 20 Blood Pressure: 122/74 O2 Sat by Pulse Oximetry: 93 Objective: Given above, testing performed: If Testing Performed: Test Specimen Type Sent to General - General Information source: Patient Notes: Patient here for Covid Testing. Reports symptoms started 2 days ago temperature 100.6 has a dry cough for the last 2 days but also notes allergies ports a history of hypertension cholesterol and GERD Emmanuel's esophagus patient does report a GERD former smoker stopped in 2011 - HPI Onset: Last week - Related Data Allergies/Adverse Reactions: morphine Adverse Reaction (Severe, Verified 03/26/19 18:59) SEVERE N/V oxycodone [From Percocet] Adverse Reaction (Severe, Verified 03/26/19 18:59) SEVERE N/V Past Medical History - General Information source: Patient - Social History Smoking Status: Former Smoker Family History: CAD, CVA, DM, Hyperlipidemia, Hypertension, Thyroid Disfunction. denies: COPD, Malignancy - Past Medical History Cardiac Medical History: Reports: Hx Hypercholesterolemia, Hx Hypertension Denies: Hx Coronary Artery Disease, Hx Heart Attack Pulmonary Medical History: Reports: Hx Pneumonia Denies: Hx Asthma, Hx Bronchitis, Hx COPD Neurological Medical History: Reports: Hx Cerebrovascular Accident - TIA. Denies: Hx Seizures Renal/ Medical History: Denies: Hx Peritoneal Dialysis GI Medical History: Reports: Hx Gastroesophageal Reflux Disease Musculoskeletal Medical History: Reports Hx Arthritis, Reports Hx Musculoskeletal Deformity - Carpal tunnel and ganglion cyst, Reports Hx Musculoskeletal Trauma - Torn tendon in the foot Psychiatric Medical History: Reports: Hx Depression Past Surgical History: Reports: Hx Orthopedic Surgery - left hand right foot, Hx Tonsillectomy - 2012, Hx Tubal Ligation. Denies: Hx Hysterectomy Physical Exam - General In distress: None Notes: PHYSICAL EXAMINATION: GENERAL: Well-appearing and in no acute distress. HEAD: Atraumatic, normocephalic. EYES: sclera anicteric, conjunctiva are normal. ENT: nares patent. Moist mucous membranes. NECK: Normal range of motion, supple without lymphadenopathy LUNGS: CTAB and equal. No wheezes rales or rhonchi. Occasional dry cough noted. HEART: Regular rate and rhythm without murmurs ABDOMEN: Soft, nontender, normal bowel sounds, no guarding. NEUROLOGICAL: Normal speech. Normal gait. PSYCH: Normal mood, normal affect. SKIN: Warm, Dry, normal turgor - Respiratory Breath sounds: Normal, Nonproductive cough Diagnostic Results Laboratory Results: Patient notified of negative rapid strep and negative rapid flu. Strep culture pending. COVID testing pending. Covid Discharge instructions provided including: As a person under investigation for Covid 19, the [place] department of Health and Human Services, division of public health advises you to adhere to the following guidance until your test results are reported to you. If your test result is positive, you will receive additional information from your provider and your local health department at that time. Remain at home until you are cleared by the health provider or public health authorities. Keep a log of visitors to your home, notify any visitors to your home of your isolation status. If you plan to move to a new address or leave the county, notify the local health department in your County. Call your doctor or seek care if you have an urgent medical need. Before seeking medical care, call ahead to get instructions from the provider before arriving at the medical office clinic or hospital. Notify them that you are being tested for the virus that causes Covid 19 so that arrangements can be made, as necessary, to prevent transmission to others in the healthcare setting. Next, notify the local health department in your county. If a medical emergency arises and you need to call 911, inform the first responders that you are being tested for the virus that causes Covid 19. Next, notify the local health department in your county. Patient Education/Counseling Counseling/Education: Patient presents with upper respiratory symptoms worrisome for possible Covid 19. Patient does not have emergency worring symptoms such as difficulty breathing, shortness of breath, chest pain, pressure, confusion or cyanosis. Patient appears suitable for discharge Patient's vital signs are stable and patient is nontoxic in appearance. Good return precautions have been discussed with patient, patient verbalized understanding and is agreeable with discharge plan of care at this time. Patient given coded instructions including: As a person under investigation for Covid 19, the [place] department of Health and Human Services, division of public health advises you to adhere to the following guidance until your test results are reported to you. If your test result is positive, you will receive additional information from your provider and your local health department at that time. Remain at home until you are cleared by the health provider or public health authorities. Keep a log of visitors to your home, notify any visitors to your home of your isolation status. If you plan to move to a new address or leave the [facility], notify the local health department in your County. Call your doctor or seek care if you have an urgent medical need. Before seeking medical care, call ahead to get instructions from the provider before arriving at the medical office clinic or hospital. Notify them that you are being tested for the virus that causes Covid 19 so that arrangements can be made, as necessary, to prevent transmission to others in the healthcare setting. Next, notify the local health department in your county. If a medical emergency arises and you need to call 911, inform the first responders that you are being tested for the virus that causes Covid 19. Next, notify the local health department in your county. RDC Discharge - Discharge Clinical Impression: COVID 19 SCREENING Upper respiratory infection Qualifiers: Pharyngitis/tonsillitis etiology: unspecified etiology Condition: Stable Disposition: Home; Selfcare
[2019-08-09 11:40] VITALS: BP 122/74
[2019-08-09 12:37] LABS: A TYPE INFLUENZA AG NEGATIVE (NEGATIVE); B INFLUENZA AG NEGATIVE (NEGATIVE)
== END ==
LOC: RDC 10:29
PROVIDERS: ATTEND Nurse Practitioner Family
DX: Z20.828 Contact with and (suspected) exposure to other viral communicable diseases (principal)
CPT/HCPCS: 87070; 87635; 87804; 87880

== ENCOUNTER → 2019-08-29 | Outpatient (CLI) | payer OTHER ==
[2019-08-29 15:14] LABS: ABSOLUTE BASOPHILS # (AUTO) 0.1 10^3/uL (0.0-0.2); ABSOLUTE EOSINOPHILS # (AUTO) 0.2 10^3/uL (0.0-0.6); ABSOLUTE LYMPHOCYTES (AUTO) 1.8 10^3/uL (0.5-4.7); ABSOLUTE MONOCYTES (AUTO) 0.5 10^3/uL (0.1-1.4); ABSOLUTE NEUT (AUTO) 4.6 10^3/uL (1.7-8.2); BASOPHILS % (AUTO) 1.1 % (0-2); EOSINOPHILS % (AUTO) 3.1 % (0-6); HEMOGLOBIN 12.4 g/dL (12.0-15.5); LYMPHOCYTES % (AUTO) 24.8 % (13-45); MEAN CORPUSCULAR HEMOGLOBIN 26.9 pg (27.0-33.4); MEAN CORPUSCULAR HGB CONC 33.5 g/dL (32.0-36.0); MEAN CORPUSCULAR VOLUME 80 fl (80-97); MONOCYTES % (AUTO) 6.5 % (3-13); PLATELET COUNT 371 10^3/uL (150-450); RED BLOOD COUNT 4.62 10^6/uL (3.72-5.28); RED CELL DISTRIBUTION WIDTH 15.7 % (11.5-14.0); SEGMENTED NEUTROPHILS % (AUTO) 64.5 % (42-78); TOTAL CELLS COUNTED % (AUTO) 100 %; WHITE BLOOD COUNT 7.2 10^3/uL (4.0-10.5)
[2019-08-29 15:34] LABS: ALBUMIN 4.2 g/dL (3.5-5.0); ALKALINE PHOSPHATASE 88 U/L (38-126); ASPARTATE AMINO TRANSFERASE 29 U/L (14-36); BILIRUBIN,TOTAL 0.4 mg/dL (0.2-1.3); BLOOD UREA NITROGEN 16 mg/dL (7-20); CALCIUM 9.4 mg/dL (8.4-10.2); CHLORIDE 102 mmol/L (98-107); CHOLESTEROL 193.64 mg/dL (0-200); GLUCOSE 105 mg/dL (75-110); POTASSIUM 5.3 mmol/L (3.6-5.0); TOTAL PROTEIN 7.5 g/dL (6.3-8.2); TRIGLYCERIDES 203 mg/dL (<150)
[2019-08-29 15:44] LABS: DIRECT LDL 117 mg/dL (<100)
[2019-08-29 15:52] LABS: VLDL CHOLESTEROL 40.6 mg/dL (10-31)
[2019-08-29 16:01] LABS: ANION GAP 6 (5-19); CARBON DIOXIDE 31 mmol/L (22-30)
== END ==
LOC: OD 14:34
PROVIDERS: ATTEND Internal Medicine
DX: I10 Essential (primary) hypertension (principal)
CPT/HCPCS: 36415; 80053; 80061; 83036; 84443; 85025

== ENCOUNTER 2019-10-17 15:37 | Emergency (ER) | payer SELFPAY ==
--- NOTE | 2019-10-17 19:09 | ER Document Report ---
ED General - General Chief Complaint: Dizziness Stated Complaint: DIZZINESS,COUGH Time Seen by Provider: 10/17/19 18:43 Primary Care Provider: [facility] [Primary Care Provider] - Follow up as needed TRAVEL OUTSIDE OF THE [place] IN LAST 30 DAYS: No - HPI Notes: Patient is a 53-year-old female presents to the emergency department for evaluation of dizziness. She states that she feels sometimes like she is drunk. She states this worsened by moving her head. Is been ongoing for the last several days. She denies any ringing in her ears, denies any hearing loss. She admits she has had a URI/seasonal allergy symptoms for the last month or 2. She denies any head injuries. She is seeing, speaking, swallowing without difficulty. No pain at this time. - Related Data Allergies/Adverse Reactions: morphine Adverse Reaction (Severe, Verified 03/26/19 18:59) SEVERE N/V oxycodone [From Percocet] Adverse Reaction (Severe, Verified 03/26/19 18:59) SEVERE N/V Home Medications: HTN, LISINOPRIL, CELEXA, ATORVASTATIN, SINGULAIR, OMEPRAZOLE Past Medical History - General Information source: Patient - Social History Smoking Status: Never Smoker Chew tobacco use (# tins/day): No Frequency of alcohol use: None Drug Abuse: None Family History: CAD, CVA, DM, Hyperlipidemia, Hypertension, Thyroid Disfunction. denies: COPD, Malignancy Patient has homicidal ideation: No - Past Medical History Cardiac Medical History: Reports: Hx Hypercholesterolemia, Hx Hypertension Denies: Hx Coronary Artery Disease, Hx Heart Attack Pulmonary Medical History: Reports: Hx Pneumonia Denies: Hx Asthma, Hx Bronchitis, Hx COPD Neurological Medical History: Reports: Hx Cerebrovascular Accident - TIA. Denies: Hx Seizures Renal/ Medical History: Denies: Hx Peritoneal Dialysis GI Medical History: Reports: Hx Gastroesophageal Reflux Disease Musculoskeletal Medical History: Reports Hx Arthritis, Reports Hx Muscul oskeletal Deformity - Carpal tunnel and ganglion cyst, Reports Hx Musculoskeletal Trauma - Torn tendon in the foot Psychiatric Medical History: Reports: Hx Depression Past Surgical History: Reports: Hx Orthopedic Surgery - left hand right foot, RIGHT FOOT, Hx Tonsillectomy - 2012, Hx Tubal Ligation. Denies: Hx Hysterectomy - Immunizations Hx Diphtheria, Pertussis, Tetanus Vaccination: Yes Review of Systems - Review of Systems Neurological/Psychological: See HPI -: Yes All other systems reviewed and negative Physical Exam - Vital signs Vitals: Temp Pulse Resp BP Pulse Ox 98.8 F 94 16 137/70 H 97 10/17/19 15:41 10/17/19 15:41 10/17/19 15:41 10/17/19 15:41 10/17/19 15:41 - Notes Notes: Vital signs reviewed, please refer to chart. Head is normocephalic, atraumatic. Pupils equal round, reactive to light. TMs are pearly merida with good light reflex. Oral mucosa is moist, uvula is midline. No pharyngeal exudates noted. Neck is supple without meningismus. Heart is regular rate and rhythm. Lungs are clear to auscultation bilaterally. Abdomen is soft, nontender, normoactive bowel sounds throughout. Extremities without cyanosis, clubbing. Posterior calves are nontender. Peripheral pulses are equal. Skin is warm and dry. Patient is awake, alert, oriented x3. Cranial nerves II - XII are grossly intact without focal neurological deficits. She does exhibit horizontal nystagmus with extraocular muscle testing. Strength is plus 5 out of 5 bilateral upper and lower extremities. Sensation is intact. Reflexes symmetrical. Intact [id number], rapid alternating movements, [id number]. Course - Re-evaluation Re-evalutation: 10/17/19 19:07 This is a pleasant 51-year-old female who presents to the emergency department for evaluation of "drunk sensation." She has a normal neurological exam, exhibits horizontal nystagmus on extraocular muscle testing. She has upper respiratory infection symptoms. She is not spitting all the time. Her symptoms are most consistent with benign positional vertigo. We talked at length about meclizine. She should not use this medication when operating heavy machinery, at work, until she finds out if she tolerates it well without dizziness and eddie wsiness. She voiced understanding to this. Otherwise she is to follow-up with primary care next week, seek out ENT referral if her symptoms persist, and return to the emergency department for worsening or new concerning symptoms of any sort. - Vital Signs Vital signs: Temp Pulse Resp BP Pulse Ox 98.8 F 94 16 137/70 H 97 10/17/19 18:01 10/17/19 15:41 10/17/19 15:41 10/17/19 15:41 10/17/19 15:41 Discharge - Discharge Clinical Impression: Benign positional vertigo Qualifiers: Laterality: unspecified laterality Qualified Code(s): H81.10 - Benign paroxysmal vertigo, unspecified ear Condition: Stable Disposition: HOME, SELF-CARE Instructions: Vertigo ([facility]), Meclizine ([facility]) Additional Instructions: Watch for drowsiness with the meclizine. Please do not operate heavy machinery while taking this medication until you realize how your body will react to it. Follow-up with your primary care provider next week. If your symptoms worsen you may require ENT referral. If you develop worsening or new concerning symptoms of any sort, return immediately to the emergency department for evaluation. Referrals: [facility] [Primary Care Provider] - Follow up as needed
[2019-10-17 20:07] VITALS: BP 146/90
== END 2019-10-17 20:07 | disposition home or self-care (01) ==
LOC: ER 15:37
DX: H81.10 Benign paroxysmal vertigo, unspecified ear (principal); R05 Cough; E78.00 Pure hypercholesterolemia, unspecified; I10 Essential (primary) hypertension; Z88.6 Allergy status to analgesic agent; Z86.73 Personal history of transient ischemic attack (TIA), and cerebral infarction without residual deficits; Z98.51 Tubal ligation status
CPT/HCPCS: 99283

== ENCOUNTER → 2019-11-01 | Outpatient (CLI) | payer OTHER ==
[2019-11-01 15:08] LABS: ABSOLUTE BASOPHILS # (AUTO) 0.1 10^3/uL (0.0-0.2); ABSOLUTE EOSINOPHILS # (AUTO) 0.3 10^3/uL (0.0-0.6); ABSOLUTE LYMPHOCYTES (AUTO) 1.8 10^3/uL (0.5-4.7); ABSOLUTE MONOCYTES (AUTO) 0.6 10^3/uL (0.1-1.4); ABSOLUTE NEUT (AUTO) 4.1 10^3/uL (1.7-8.2); EOSINOPHILS % (AUTO) 4.1 % (0-6); HEMATOCRIT 36.6 % (36.0-47.0); HEMOGLOBIN 12.1 g/dL (12.0-15.5); LYMPHOCYTES % (AUTO) 26.7 % (13-45); MEAN CORPUSCULAR HEMOGLOBIN 26.7 pg (27.0-33.4); MEAN CORPUSCULAR VOLUME 81 fl (80-97); MONOCYTES % (AUTO) 8.4 % (3-13); PLATELET COUNT 370 10^3/uL (150-450); RED BLOOD COUNT 4.53 10^6/uL (3.72-5.28); RED CELL DISTRIBUTION WIDTH 16.2 % (11.5-14.0); SEGMENTED NEUTROPHILS % (AUTO) 59.8 % (42-78); TOTAL CELLS COUNTED % (AUTO) 100 %; WHITE BLOOD COUNT 6.8 10^3/uL (4.0-10.5)
[2019-11-01 15:49] LABS: ERYTHROCYTE SEDIMENTATION RATE 34 mm/hr (0-30)
== END ==
LOC: CCC 14:06
PROVIDERS: ATTEND Internal Medicine
DX: R42 Dizziness and giddiness (principal); J30.9 Allergic rhinitis, unspecified
CPT/HCPCS: 36415; 85025; 85652

== ENCOUNTER 2019-12-13 21:40 | Emergency (ER) | payer SELFPAY ==
--- NOTE | 2019-12-13 22:43 | ER Document Report ---
ED Medical Screen (RME) - General Chief Complaint: Abdominal Pain Stated Complaint: ABDOMINAL PAIN Time Seen by Provider: 12/13/19 22:40 Primary Care Provider: [facility] [Primary Care Provider] - Follow up as needed Mode of Arrival: Ambulatory Information source: Patient Notes: 54-year-old female presented to ED for complaint of right pelvic pain starting today. She states she has had pain in the right groin for a few months from lifting things and stepping up but today she went to bend over and she has severe pain in the right pelvic. She states she does not have any blood in the urine. Patient is able to walk but states it is painful. She does have tenderness to palpation to the right pelvic area. I have greeted and performed a rapid initial assessment of this patient. A comprehensive ED assessment and evaluation of the patient, analysis of test results and completion of medical decision making process will be conducted by an additional ED providers. TRAVEL OUTSIDE OF THE [place] IN LAST 30 DAYS: No - Related Data Allergies/Adverse Reactions: morphine Adverse Reaction (Severe, Verified 03/26/19 18:59) SEVERE N/V oxycodone [From Percocet] Adverse Reaction (Severe, Verified 03/26/19 18:59) SEVERE N/V Past Medical History - Past Medical History Cardiac Medical History: Reports: Hx Hypercholesterolemia, Hx Hypertension Denies: Hx Coronary Artery Disease, Hx Heart Attack Pulmonary Medical History: Reports: Hx Pneumonia Denies: Hx Asthma, Hx Bronchitis, Hx COPD Neurological Medical History: Reports: Hx Cerebrovascular Accident - TIA. Denies: Hx Seizures Renal/ Medical History: Denies: Hx Peritoneal Dialysis GI Medical History: Reports: Hx Gastroesophageal Reflux Disease Musculoskeltal Medical History: Reports Hx Arthritis, Reports Hx Musculoskeletal Deformity - Carpal tunnel and ganglion cyst, Reports Hx Musculoskeletal Trauma - Torn tendon in the foot Psychiatric Medical History: Reports: Hx Depression Past Surgical History: Reports: Hx Orthopedic Surgery - left hand right foot, RIGHT FOOT, Hx Tonsillectomy - 2011, Hx Tubal Ligation. Denies: Hx Hysterectomy - Immunizations Hx Diphtheria, Pertussis, Tetanus Vaccination: Yes Physical Exam - Vital signs Vitals: Temp Pulse Resp BP Pulse Ox 98.8 F 108 H 16 154/119 H 98 12/13/19 21:59 12/13/19 21:59 12/13/19 21:59 12/13/19 21:59 12/13/19 21:59 Course - Vital Signs Vital signs: Temp Pulse Resp BP Pulse Ox 98.8 F 108 H 16 154/119 H 98 12/13/19 21:59 12/13/19 21:59 12/13/19 21:59 12/13/19 21:59 12/13/19 21:59 Doctor's Discharge - Discharge Referrals: [facility] [Primary Care Provider] - Follow up as needed
--- NOTE | 2019-12-13 23:06 | ER Document Report ---
ED General - General Chief Complaint: Groin Pain Stated Complaint: ABDOMINAL PAIN Time Seen by Provider: 12/13/19 22:40 Primary [facility] Provider: [facility] [Primary Care Provider] - Follow up as needed Mode of Arrival: Ambulatory Notes: 34-year lady presents with pain in her right groin and crotch region. She is had intermittent pain there for the last few weeks, and had a lot of heavy lifting before that. She has an issue where when she turns or indicators her abdomen so she feels the pain when she walks she feels a pulling in her right groin. Today she went down to take her shoe off before getting the shower felt an instant ripping pain there. Is better when she lays still and stretches out her waist but is worse when she bends over. No nausea no vomiting. No diar rober. No bulges felt. No hematuria or other urinary symptoms. TRAVEL OUTSIDE OF THE [place] IN LAST 30 DAYS: No - Related Data Allergies/Adverse Reactions: morphine Adverse Reaction (Severe, Verified 03/26/19 18:59) SEVERE N/V oxycodone [From Percocet] Adverse Reaction (Severe, Verified 03/26/19 18:59) SEVERE N/V Past Medical History - General Information source: Patient - Social History Smoking Status: Never Smoker Family History: CAD, CVA, DM, Hyperlipidemia, Hypertension, Thyroid Disfunction. denies: COPD, Malignancy Patient has homicidal ideation: No - Past Medical History Cardiac Medical History: Reports: Hx Hypercholesterolemia, Hx Hypertension Denies: Hx Coronary Artery Disease, Hx Heart Attack Pulmonary Medical History: Reports: Hx Pneumonia Denies: Hx Asthma, Hx Bronchitis, Hx COPD Neurological Medical History: Reports: Hx Cerebrovascular Accident - TIA. Denie s: Hx Seizures Renal/ Medical History: Denies: Hx Peritoneal Dialysis GI Medical History: Reports: Hx Gastroesophageal Reflux Disease Musculoskeletal Medical History: Reports Hx Arthritis, Reports Hx Musculoskeletal Deformity - Carpal tunnel and ganglion cyst, Reports Hx Musculoskeletal Trauma - Torn tendon in the foot Psychiatric Medical History: Reports: Hx Depression Past Surgical History: Reports: Hx Orthopedic Surgery - left hand right foot, RIGHT FOOT, Hx Tonsillectomy - 2012, Hx Tubal Ligation. Denies: Hx Hysterectomy - Immunizations Hx Diphtheria, Pertussis, Tetanus Vaccination: Yes Review of Systems - Review of Systems Notes: REVIEW OF SYSTEMS GEN: Denies fever, chills, weight loss ENT: Denies sore throat, nasal discharge, ear pain EYES: Denies blurry vision, eye pain, discharge CV: Denies chest pain, palpitations, edema RESP: Denies cough, shortness of breath, wheezing GI: D see HPI MSK: Denies joint pain/swelling, edema, SKIN: Denies rash, skin lesions LYMPH: Denies swollen glands/lymph nodes NEURO: Denies headache, focal weakness or numbness, dizziness PSYCH: Denies depression, suicidal or homicidal ideation PHYSICAL EXAMINATION General: No acute distress, well-nourished Head: Atraumatic, normocephalic ENT: Mouth normal, oropharynx moist, no exudates or tonsillar enlargement Eyes: Conjunctiva normal, pupils equal, lids normal Neck: No JVD, supple, no guarding CVS: Normal rate, regular rhythm, no murmurs Resp: No resp distress, equal and normal breath sounds bilaterally GI: Nondistended, soft, mild tenderness to palpation of the right lower quadrant and groin region without palpable defect although limited by morbid obesity. No groin mass pseudoaneurysm pulsatile mass or inguinal fluctuance was palpated. Ext: No deformities, no edema, normal range of motion in upper and lower ext Back: No CVA or midline TTP Skin: No rash, warm Lymphatic: No lymphadeopathy noted Neuro: Awake, alert. Face symmetric. GCS 15. Physical Exam - Vital signs Vitals: Temp Pulse Resp BP Pulse Ox 98.8 F 108 H 16 154/119 H 98 12/13/19 21:59 12/13/19 21:59 12/13/19 21:59 12/13/19 21:59 12/13/19 21:59 Course - Re-evaluation Re-evalutation: 12/14/19 00:10 Patient presents with tearing pain in the abdomen on movement with mild tenderness to do aydee wall palpation but when I palpate the right lower quadrant through her belly rather than her groin she is not tender. The pain is exacerbated by engaging her muscles. Not see a definite hernia but she probably has either diastases or small abdominal inguinal hernia given her habitus and and the story. No fevers no vomiting no pain at rest. Medication for imaging. Follow-up surgery. I have discussed with the patient there likely diagnosis, aftercare plan, follow-up plans and my usual and customary return precautions. They verbalized understanding of this. - Vital Signs Vital signs: Temp Pulse Resp BP Pulse Ox 98.8 F 108 H 16 154/119 H 98 12/13/19 21:59 12/13/19 21:59 12/13/19 21:59 12/13/19 21:59 12/13/19 21:59 Discharge - Discharge Clinical Impression: Abdominal wall pain in right lower quadrant, Hernia of abdominal cavity Condition: Good Disposition: HOME, SELF-CARE Instructions: Abdominal Pain ([facility]), Hernia ([facility]) Referrals: [facility] [Primary Care Provider] - Follow up as needed ELMO IRVING MD [ACTIVE STAFF] - Follow up as needed
[2019-12-14 00:09] VITALS: BP 143/87
== END 2019-12-14 00:21 | disposition home or self-care (01) ==
LOC: ER 21:40
DX: K46.9 Unspecified abdominal hernia without obstruction or gangrene (principal); R10.31 Right lower quadrant pain; E78.00 Pure hypercholesterolemia, unspecified; I10 Essential (primary) hypertension; Z88.6 Allergy status to analgesic agent
CPT/HCPCS: 99283

== ENCOUNTER → 2020-04-23 | Outpatient (CLI) | payer OTHER ==
--- NOTE | 2020-04-23 15:13 | RADIOLOGY REPORT (SQ) ---
EXAM DESCRIPTION: CT ABD/PELVIS WITH IV ONLY IMAGES COMPLETED DATE/TIME: 04/23/2020 2:16 pm REASON FOR STUDY: INTERMITTENT RLQ ABD PAIN R10.31 RIGHT LOWER QUADRANT PAIN COMPARISON: None. TECHNIQUE: CT scan of the abdomen and pelvis performed using helical scanning technique with dynamic intravenous contrast injection. No oral contrast. Images reviewed with lung, soft tissue, and bone windows. Reconstructed coronal and sagittal MPR images reviewed. Delayed images for evaluation of the urinary system also acquired. All images stored on PACS. All CT scanners at this facility use dose modulation, iterative reconstruction, and/or weight based d osing when appropriate to reduce radiation dose to as low as reasonably achievable (ALARA). [facility]: Dose Right [facility]: CareDose [facility]: Dose Right [facility]: Teradose 4D [facility]: Sonicbids CONTRAST TYPE AND DOSE: contrast/concentration: Isovue 350.00 mmol/ml; Total Contrast Delivered: 100 .0 ml; Total Saline Delivered: 40.0 ml RENAL FUNCTION: Creatinine 0.8 RADIATION DOSE: CT Rad equipment meets quality standard of care and radiation dose reduction techniq ues were employed. CTDIvol: 22.2 - 29.3 mGy. DLP: 2821 mGy-cm.. LIMITATIONS: None. FINDINGS: LOWER CHEST: Moderate size hiatal hernia containing stomach. LIVER: Normal size. No masses. No dilated ducts. SPLEEN: Normal size. No focal lesions. PANCREAS: No masses. No significant calcifications. No adjacent inflammation or peripancreatic fluid collections. Pancreatic duct not dilated. GALLBLADDER: No identified stones by CT criteria. No inflammatory changes to suggest cholecystitis. ADRENAL GLANDS: No significant masses or asymmetry. RIGHT KIDNEY AND URETER: No solid masses. No significant calcifications. No hydronephrosis or hyd roureter. LEFT KIDNEY AND URETER: No solid masses. No significant calcifications. No hydronephrosis or hydr oureter. AORTA AND VESSELS: No aneurysm. No dissection. Renal arteries, SMA, celiac without stenosis. RETROPERITONEUM: No retroperitoneal adenopathy, hemorrhage or masses. BOWEL AND PERITONEAL CAVITY: No masses or inflammatory changes. No free fluid or peritoneal masses. APPENDIX: Normal. PELVIS: No mass. No free fluid. Normal bladder. ABDOMINAL WALL: No masses. No hernias. BONES: Disc space narrowing at L4-L5 and L5-S1. OTHER: No other significant finding. IMPRESSION: Moderate size hiatal hernia. No other significant findings. TECHNICAL DOCUMENTATION: JOB ID: [id number] Quality ID # [id number]: Final reports with documentation of one or more dose reduction techniques (e.g., Au tomated exposure control, adjustment of the mA and/or kV according to patient size, use of iterative reconstruction technique) 2010 [employer]- All Rights Reserved Reading location - IP/workstation name: [email or web address]
== END ==
LOC: RAD 13:48
PROVIDERS: ATTEND Internal Medicine
DX: R10.31 Right lower quadrant pain (principal); K44.9 Diaphragmatic hernia without obstruction or gangrene
CPT/HCPCS: 74177; 82565

== ENCOUNTER → 2020-06-01 | Outpatient (CLI) | payer OTHER ==
--- NOTE | 2020-06-01 15:19 | WOMENS IMAGING REPORT ---
"EXAM DESCRIPTION: JASSI MORALES BILATERAL SCREEN IMAGES COMPLETED DATE/TIME: 06/01/2020 7:15 am REASON FOR STUDY: ROUTINE BILATERAL SCREENING;Z12.31 Z12.31 ENCNTR SCREEN MAMMOGRAM FOR MALIGNANT N EOPLASM OF MARY CARMEN COMPARISON: None, baseline exam EXAM PARAMETERS: Standard craniocaudal and mediolateral oblique views of each breast recorded using digital acquisition. Read with the assistance of CAD. .Proenza Schouer - [employer] Version 9.2 LIMITATIONS: None. FINDINGS: No suspicious masses, suspicious calcifications or architectural distortion. No areas of c oncern. IMPRESSION: NEGATIVE MAMMOGRAM. BIRADS 1 BREAST DENSITY: b. There are scattered areas of fibroglandular density. BIRAD: ASSESSMENT: 1 NEGATIVE RECOMMENDATION: ROUTINE SCREENING COMMENT: The patient has been notified of the results by letter per MQSA requirements. Additional no tification policies are in place for contacting patient with suspicious or incomplete findings. Quality ID #[id number]: The [employer] recommends an annual screening mammogram for women aged 40 years or over. This facility utilizes a reminder system to ensure that all patients receive reminder letters, and/or direct phone calls for appointments. This includes reminders for routine scr eening mammograms, diagnostic mammograms, or other Breast Imaging Interventions when appropriate. Th is patient will be placed in the appropriate reminder system. TECHNICAL DOCUMENTATION: FINDING NUMBER: (1) ASSESSMENT: (1) JOB ID: [id number] 2010 [employer] | [employer]- All Rights Reserved Reading location - IP/workstation name: [email or web address]"
== END ==
LOC: WI 14:47
PROVIDERS: ATTEND Internal Medicine
DX: Z12.31 Encounter for screening mammogram for malignant neoplasm of breast (principal)
CPT/HCPCS: 77067